=== PATIENT | male | born 1955 | race Caucasian/White ===

== ENCOUNTER 2024-02-07 23:42 | Emergency (ER) | payer MEDICARE, SELFPAY ==
--- NOTE | 2024-02-07 23:43 | ECG_ITS ---
Test Reason : TACHY Blood Pressure : / mmHG Vent. Rate : 105 BPM Atrial Rate : 000 BPM P-R Int : 000 ms QRS Dur : 094 ms QT Int : 338 ms P-R-T Axes : 000 027 009 degrees QTc Int : 446 ms Rhythm shows atrial flutter with variable block with rapid ventricular response Nonspecific ST and T wave abnormality Abnormal ECG No previous ECGs available Referred By: Generic ED Physician Electronically Signed By:TAYA BENAVIDEZ MD
[2024-02-07 23:53] VITALS: BP 141/78; PULSE 113; RESP 18; TEMP 36.6; O2SAT 98; BMI 30.4
--- NOTE | 2024-02-07 23:54 | MHC.EDTECH ---
Patient brought into triage area,EKG taken per order and signed by provider.
--- NOTE | 2024-02-08 | MHC.EDTECH ---
Labs drawn and sent to lab,patient brought to ED bed 17,changed into hospital attire and placed on the cardiac cath technician
[2024-02-08 00:08] LABS: MANUAL DIFF FLAG NO
[2024-02-08 00:12] LABS: Basophils Absolute Auto 0.1 X10*3/uL (0.0-0.2); Basophils Percent Auto 0.9 % (0-2); Eosinophils Absolute Auto 0.4 X10*3/uL (0.0-0.4); Eosinophils Percent Auto 4.9 % (0-4); Hematocrit 46.4 % (42.0-52.0); Imm Gran Abs Auto 0.01 X10*3/uL (0.00-0.03); Imm Gran Pct Auto 0.1 % (0.0-0.4); Lymphocytes Absolute Auto 2.2 X10*3/uL (1.2-4.9); Lymphocytes Percent Auto 27.2 % (20-40); Mean Corpuscular HGB Conc 34.5 g/dl (31.0-36.0); Mean Corpuscular Hemoglobin 30.3 pg (27.0-33.0); Mean Corpuscular Volume 87.9 fL (80.0-98.0); Mean Platelet Volume 9.8 fL (9.4-12.4); Monocytes Percent Auto 11.7 % (2-11); Neutrophils Absolute Auto 4.5 x10*3/uL (2.0-8.3); Neutrophils Percent Auto 55.2 % (45-73); Platelet Count 215 X10*3/uL (160-400); Red Blood Count 5.28 X10*6/uL (4.60-5.80); Red Cell Distribution Width 12.2 % (11.0-16.0); White Blood Count 8.2 X10*3/uL (4.8-10.8)
[2024-02-08 00:19] LABS: Anion Gap 13 (12-20); Blood Urea Nitrogen 15 mg/dL (9-16); Calcium 10.2 mg/dL (8.4-10.2); Carbon Dioxide 26 mmol/L (22-29); Chloride 106 mmol/L (96-108); Creatinine Clr Calc Pharmacy 66.7; Estimated Glomerular Filt Rate > 60; Glucose Random 117 mg/dL (60-115); Potassium 3.4 mmol/L (3.3-5.1); Sodium 142 mmol/L (135-145)
--- NOTE | 2024-02-08 00:24 | ED_ITS ---
HPI - Chest Pain General Chief Complaint: Chest Pain Stated Complaint: heart racing Time Seen by Provider: 02/08/24 00:24 Source: patient Mode of arrival: ambulatory Limitations: no limitations History of Present Illness ED Provider: jossue MARTINO narrative: Patient with history of high cholesterol otherwise healthy comes here for episode of palpitation started an hour ago lasted for an hour within few minutes of arrival palpitation stopped. Patient had dizzy spell 2 months ago was seen by supervisor [facility] [employer] and PCP workup was negative no Holter monitoring was done had echo done few weeks ago which was also normal at the time of evaluation and EKG patient did not have any dizziness when visited supervisor [facility] [employer]. Today patient got up went to bathroom to brush his teeth and noticed heart beating fast which he never felt before with slight lightheadedness heart rate was in 150 range and was irregular no chest pain no shortness a breath no fever no chills patient does drink coffee in a.m. Related Data Previous Rx's ?Medication ?Instructions ?Recorded aspirin 81 mg tablet,delayed 81 mg PO DAILY #30 tabs 02/08/24 release metoprolol tartrate 25 mg tablet 25 mg PO DAILY PRN Palpitation #20 02/08/24 tabs Allergies Allergy/AdvReac Type Severity Reaction Status Date / Time No Known Allergies Allergy Verified 02/07/24 23:54 Review of Systems 2 Review of Systems: Yes all other systems are reviewed and are negative [facility] Social History Social History Alcohol intake: current Alcohol intake frequency: 3 or more drinks per day Alcohol type: beer, wine and hard liquor Smoked in Last 30 Days: No Use of substances other than those prescribed or required for medical reasons: No Advance Directives: No Advance Directives Information Provided: Yes Do you have a plan to hurt others: No Plan Physical Exam 2 Vital Signs: Vital Signs: Last Vital Signs Temp 0 F L 02/08/24 01:31 Pulse 70 02/08/24 01:31 Resp 14 02/08/24 01:31 BP 124/78 02/08/24 01:31 Pulse Ox 94 02/08/24 01:31 O2 Del Method Room Air 02/08/24 01:31 BMI result Body Mass Index 30.4 Appearance: Alert. Oriented X3. No acute distress. Eyes: PERRLA, No Nystagmus ENT: Pharynx normal. Oral Mucosa moist Neck: Normal inspection. Neck supple. CVS: Normal heart rate and rhythm. Pulses normal. No murmur rub or gallop Respiratory: No respiratory distress. Equal air entry bilateral, no wheezing/rales/rhonchi Abdomen: Soft and nontender. Bowel sounds are present, no mass palpable, no CVA tenderness Skin: Skin warm and dry. Normal skin color. Normal skin turgor. Extremities: No lower extremity edema. No calf tenderness Neuro: Oriented X 3. No motor deficit. No sensory deficit.No cerebellar signs , cranial nerves II-XII intact Medications Administered Discontinued Medications Generic Name Dose Route Start Last Admin Trade Name Freq PRN Reason Stop Dose Admin Aspirin 162 mg 02/08/24 00:48 02/08/24 01:05 Aspirin 81 Mg Tab.Chew PO 02/08/24 00:49 162 mg ONCE ONE Administration Metoprolol Tartrate 25 mg 02/08/24 01:02 02/08/24 01:06 Metoprolol Tartrate 25 Mg Tablet PO 02/08/24 01:03 25 mg ONCE ONE Administration Protocol Medical Decision Making Medical Decision Making [facility] Narrative: Patient with paroxysmal AFib converted to normal sinus rhythm, normal echo done few weeks ago will start patient on aspirin chads score of 0 will start patient on 81 mg aspirin also prescribe him Lopressor 25 mg PRN patient is usually heart rate is in 50s to be more cautious and advised to follow up with [facility] [employer] Differential Diagnosis Differential Diagnoses: The differential diagnosis associated with the presentation includes AFib/atrial flutter/SVT Lab Data [facility] Lab Attestation statement: I reviewed the patient's lab results. 02/07/24 23:59 02/07/24 23:59 Labs: Lab Results 02/07/24 Range/Units 23:59 WBC 8.2 (4.8-10.8) X10*3/uL RBC 5.28 (4.60-5.80) X10*6/uL Hgb 16.0 (14.0-18.0) g/dl Hct 46.4 (42.0-52.0) % MCV 87.9 (80.0-98.0) fL MCH 30.3 (27.0-33.0) pg MCHC 34.5 (31.0-36.0) g/dl RDW 12.2 (11.0-16.0) % Plt Count 215 (160-400) X10*3/uL MPV 9.8 (9.4-12.4) fL Immature Gran % (Auto) 0.1 (0.0-0.4) % Neut % (Auto) 55.2 (45-73) % Lymph % (Auto) 27.2 (20-40) % Phillips % (Auto) 11.7 H (2-11) % Eos % (Auto) 4.9 H (0-4) % Baso % (Auto) 0.9 (0-2) % Lymph # (Auto) 2.2 (1.2-4.9) X10*3/uL Phillips # (Auto) 1.0 (0.1-1.2) X10*3/uL Eos # (Auto) 0.4 (0.0-0.4) X10*3/uL Baso # (Auto) 0.1 (0.0-0.2) X10*3/uL Abs Immat Gran (auto) 0.01 (0.00-0.03) X10*3/uL Absolute Neuts (auto) 4.5 (2.0-8.3) x10*3/uL Absolute Nucleated RBC 0.000 (0.0-0.012) X10*3/uL Nucleated RBC % (auto) 0.0 (0.0-0.2) /100WBC Hold Blue Top SEE NOTE Sodium 142 (135-145) mmol/L Potassium 3.4 (3.3-5.1) mmol/L Chloride 106 (96-108) mmol/L Carbon Dioxide 26 (22-29) mmol/L Anion Gap 13 (12-20) BUN 15 (9-16) mg/dL Creatinine 1.19 (0.5-1.4) mg/dL Estim Creat Clear Calc 66.7 Estimated GFR > 60 Random Glucose 117 H (60-115) mg/dL Calcium 10.2 (8.4-10.2) mg/dL Troponin I High Sens 12.4 (<3.5-35.0) ng/L Independent Interpretation I performed an independent interpretation of an: EKG Interpretation: [id number] Atrial fibrillation with ventricular rate of 105 normal axis no acute ST T wave changes no acute ischemia 00:25 normal sinus rhythm heart rate 81 beats per minute normal interval normal axis no acute ST T wave changes Discharge Plan Discharge Clinical Impression: Paroxysmal A-fib Patient Disposition: Home, Self-Care Instructions: A-fib (Atrial Fibrillation) (ED) Additional Instructions: Take baby aspirin daily Lopressor 25 mg p.o. at the time of onset of palpitation if any and report to the ER Follow with your supervisor [facility] [employer] Prescriptions: New metoprolol tartrate 25 mg tablet 25 mg PO DAILY PRN (Reason: Palpitation) Qty: 20 0RF aspirin 81 mg tablet,delayed release (DR/EC) 81 mg PO DAILY Qty: 30 0RF Interventions: ED Discharge Assessment Last Done: 02/08/24 01:31 Discharge Date/Time: 02/08/24 01:33 Print Language: Occitan
[2024-02-08 00:27] LABS: Troponin-I High Sensitivity 12.4 ng/L (<3.5-35.0)
--- NOTE | 2024-02-08 00:36 | ECG_ITS ---
Test Reason : CHEST PAIN Blood Pressure : / mmHG Vent. Rate : 081 BPM Atrial Rate : 081 BPM P-R Int : 196 ms QRS Dur : 086 ms QT Int : 380 ms P-R-T Axes : 027 -10 041 degrees QTc Int : 441 ms Normal sinus rhythm Normal ECG When compared with ECG of 07-FEB-2024 23:46, Sinus rhythm has replaced Rhythm shows atrial flutter with variable block ST no longer depressed in Lateral leads Nonspecific T wave abnormality no longer evident in Inferior leads Referred By: Carlos Aquino Electronically Signed By:TAYA BENAVIDEZ MD
[2024-02-08] MEDS: Aspirin 81 MG TAB.CHEW 162 MG PO (01:05)
[2024-02-08 01:06] VITALS: BP 134/78; PULSE 75
[2024-02-08] MEDS: Metoprolol Tartrate 25 MG TABLET PO (01:06)
[2024-02-08 01:24] VITALS: BP 124/78; PULSE 70; RESP 14; O2SAT 94
[2024-02-08 01:31] VITALS: BP 124/78; PULSE 70; RESP 14; TEMP -17.7; TEMP 0; O2SAT 94
== END 2024-02-08 01:33 | disposition home or self-care (01) ==
PROVIDERS: Emergency Provider Internal Medicine
DX: I48.0 Paroxysmal atrial fibrillation (principal); R00.2 Palpitations
CPT/HCPCS: 36415; 80048; 84484; 85025; 93005; 99284; 99285

== ENCOUNTER → 2024-02-07 23:43 | Outpatient (BNV) | payer MEDICARE, SELFPAY | PROVIDERS: Emergency Provider Internal Medicine; Visit Provider Internal Medicine Cardiovascular Disease | DX: R00.0 Tachycardia, unspecified (principal); R94.31 Abnormal electrocardiogram [ECG] [EKG] | CPT/HCPCS: 93010 ==

== ENCOUNTER → 2024-02-08 00:36 | Outpatient (BNV) | payer MEDICARE, SELFPAY | PROVIDERS: Emergency Provider Internal Medicine; Visit Provider Internal Medicine Cardiovascular Disease | DX: R07.9 Chest pain, unspecified (principal); I48.92 Unspecified atrial flutter | CPT/HCPCS: 93010 ==

== ENCOUNTER 2024-02-14 14:56 | Outpatient (AMB) | payer MEDICARE, SELFPAY ==
--- NOTE | 2024-02-14 15:12 | AM.OFFWIN_ITS ---
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 Cut yesterday with kitchen knife. Thinks up to date on TDAP Patient Tobacco Use Status: Never used Tobacco Allergies Penicillins Allergy (Intermediate, Verified 02/14/24 15:19) Rash Do you need a note to return to daycare/school/sports/work: No HPI HPI Comments 2 History of Present Illness0 Details 68 y/o male patient who presents to walk in clinic with c/o cut on left index finger. Patient was cutting onions yesterday afternoon when he cut the tip of his index finger left hand. Tip of the finger missing, superficially, bleeding and tenderness. [facility] Social History Alcohol intake: current Alcohol intake frequency: 3 or more drinks per day Alcohol type: beer, wine and hard liquor Patient Tobacco Use Status: Never used Tobacco Review of Systems Const All systems reviewed & are unremarkable except as noted in HPI and below Physical Exam Vital Signs: Last Vital Signs Temp 98.7 F 02/14/24 15:13 Pulse 57 02/14/24 15:13 BP 138/84 02/14/24 15:13 Pulse Ox 94 02/14/24 15:13 Oxygen Delivery Method Room Air 02/14/24 15:13 BMI result Body Mass Index 31.5 Const General: comfortable and no acute distress Orientation/consciousness: patient oriented x3 Neuro General: patient oriented x3, gait normal and moves all extremities Extrem Left upper extremity: hand Details: tenderness Location: of the 2nd digit Location: involving the fingernail Hand/finger images: 2 1. Small chunk of tip of index finger missing, active bleeding and tenderness to touch. Psych Speech and movement: Normal speech and movement present Assessment & Plan Assessment & Plan (1) Cut of skin of index finger: Code(s): S61.218A - Laceration without foreign body of other finger without damage to nail, initial encounter Plan: clean the wound well Applied a pressure dressing to stop bleeding. Acetaminophen for pain relief. Last Tetanus shot unknown. Will have Pt come back for Tdap shot. Coding Level of Care Code Est Pt Level 3 (68619) Diagnoses Cut of skin of index finger S61.218A Time Spent (min) 15
[2024-02-14 15:13] VITALS: BP 138/84; PULSE 57; TEMP 37.1; O2SAT 94; BMI 31.5
== END 2024-02-14 16:02 | disposition home or self-care (01) ==
PROVIDERS: PCP Internal Medicine; Visit Provider Nurse Practitioner Family
DX: S61.218A Laceration without foreign body of other finger without damage to nail, initial encounter (principal)
CPT/HCPCS: 99213

== ENCOUNTER 2025-07-29 00:44 | Emergency (ER) | payer MEDICARE, SELFPAY ==
--- NOTE | 2025-07-29 | ECG_ITS ---
Test Reason : AFIB Blood Pressure : */* mmHG Vent. Rate : 95 BPM Atrial Rate : * BPM P-R Int : * ms QRS Dur : 92 ms QT Int : 358 ms P-R-T Axes : * 28 41 degrees QTcB Int : 449 ms Atrial fibrillation Abnormal ECG When compared with ECG of 08-Feb-2024 00:25, Atrial fibrillation has replaced Sinus rhythm Referred By: Generic ED Physician Electronically Signed By: Cash Marx
--- NOTE | ~2025-07-29 | XR_ITS ---
CLINICAL HISTORY: afib 2 view chest x-ray Comparison: None provided Findings: Mild bibasilar atelectasis/pneumonitis, right worse than left. Mild emphysematous changes by radiographs. Cardiac silhouette within upper limits of normal with cardiac cath rn opacity present. No pneumothorax or pleural effusion. Mild vertebral height losses are age indeterminate likely old/chronic. Degenerative changes include imaged shoulders and imaged spine. IMPRESSION: Mild bibasilar atelectasis/pneumonitis This document has been electronically signed by: Juancarlos Jo MD on 07/29/2025 01:45:42
[2025-07-29 00:52] VITALS: BP 140/90; PULSE 101; RESP 18; TEMP 36.5; O2SAT 96; BMI 29.6
--- NOTE | 2025-07-29 01:50 | ECG_ITS ---
Test Reason : ARRYTHMIA Blood Pressure : */* mmHG Vent. Rate : 64 BPM Atrial Rate : 64 BPM P-R Int : 200 ms QRS Dur : 92 ms QT Int : 406 ms P-R-T Axes : 30 -6 32 degrees QTcB Int : 418 ms Normal sinus rhythm Normal ECG When compared with ECG of 29-Jul-2025 00:47, Sinus rhythm has replaced Atrial fibrillation Vent. rate has decreased by 31 bpm Referred By: Korey Echavarria Electronically Signed By: Cash Marx
--- NOTE | 2025-07-29 01:51 | ED_ITS ---
HPI - General Adult General Chief complaint: Arrhythmia/Palpitations Stated complaint: Afib? Time Seen by Provider: 07/29/25 01:16 Source: patient, RN notes reviewed and old records reviewed Mode of arrival: ambulatory Limitations: no limitations History of Present Illness ED Provider: Jericho MARTINO narrative: 69-year-old male with a past medical history significant for paroxysmal atrial fibrillation not anticoagulated presents for evaluation of palpitations. Patient follows with [facility]. He reports around 11:15 p.m. tonight while he was brushing his teeth he felt palpitations He has had AFib in the past that he has been seen in the ER for. He reports getting palpitations that often last a few minutes at a time before resolving. On this occasion his symptoms lasted for over an hour. He checked his blood pressure monitor that told him he was in AFib prompting him to come to the hospital. He took metoprolol 25 mg around midnight that was prescribed to him for episodes of palpitations He has no chest pain, no shortness of breath. Denies any fevers, chills pain Denies any leg swelling or history of heart failure The patient denies any significant stress today. He reports he was born travel hours prior to the onset of palpitations Related Data Home Medications ?Medication ?Instructions ?Recorded ?Confirmed atorvastatin 40 mg tablet 40 mg PO BEDTIME 02/14/24 Previous Rx's ?Medication ?Instructions ?Recorded aspirin 81 mg tablet,delayed 81 mg PO DAILY #30 tabs 0 02/08/24 release Allergies Allergy/AdvReac Type Severity Reaction Status Date / Time Penicillins Allergy Intermediate Rash Verified 07/29/25 00:55 Review of Systems 2 Constitutional: Constitutional: Denies body ache(s), Denies chills, Denies fever(s) and Denies headache(s) Eyes: Eyes: Denies blurry vision ENT: Denies vertigo, Denies dizziness and Denies headache(s) Cardiovascular: Cardiovascular: Denies chest pain, Reports rapid heart rate, Reports palpitations, Denies dyspnea and Denies dyspnea on exertion Respiratory: Respiratory: Denies cough, Denies dyspnea and Denies dyspnea on exertion Gastrointestinal: Gastrointestinal: Denies abdominal pain, Denies nausea and Denies vomiting Musculoskeletal: Musculoskeletal: Denies back pain Integumentary/Breasts: Skin/Breast: Denies rash Neurologic: Denies vertigo, Denies dizziness and Denies headache(s) Endocrine: Endocrine: Reports palpitations PMFSH Social History Social History Alcohol intake: current Alcohol intake frequency: 3 or more drinks per day Alcohol type: beer, wine and hard liquor Patient Tobacco Use Status: Never used Tobacco Advance Directives: No Advance Directives Information Provided: Yes Do you have a plan to hurt others: No Plan Physical Exam ED Vital Signs: Vital Signs - 24 hr 07/29/25 00:52 Temperature 97.7 F Pulse Rate 101 H Respiratory Rate 18 Blood Pressure 140/90 H Pulse Oximetry 96 Oxygen Delivery Method Room Air BMI result Body Mass Index 29.6 Const General: healthy appearing, comfortable, no acute distress, alert and awake Nutritional Appearance: well nourished Orientation/consciousness: patient oriented x3 HENMT Head: Yes normocephalic and Yes atraumatic Eyes Eyelids: Yes eyelids normal Conjunctivae: conjunctivae normal Sclerae: sclerae normal Corneas: corneas normal Pupils: Equal, round and reactive pupils present EOM: EOMs intact bilaterally Neck Neck: Yes full ROM Resp Effort & Inspection: normal respiratory effort, able to speak in complete sentences, no audible wheezes and not labored Auscultation: clear to auscultation bilaterally Cardio Other: No lower extremity edema Rhythm: abnormal rhythm irregularly irregular GI Inspection: No distended Palpation (GI): Soft to palpation, not firm, nontender, no guarding and not rigid Skin General skin exam: elasticity normal Neuro General: patient oriented x3 Cranial nerves: Yes Equal, round and reactive pupils present and Yes Bilaterally intact EOM present Cognition (Neuro): normal cognition Extrem Other: Moving all extremities well without any obvious deformities Course Reevaluation(s) Reevaluation #1: Patient has seemed to spontaneously convert back to a normal sinus rhythm. EKG confirms normal sinus rhythm with a rate in the 60s Time: 02:03 Reevaluation #2: 2:32 AM 07/29/2025 (Aubrey RODRIGUEZ): Patient is signed out to this provider at shift change, in summary the patient is a 69-year-old male who suffers from paroxysmal atrial fibrillation, presenting to the ED after he developed racing heart palpitation sensation while brushing his teeth. Patient took his prn metoprolol at home with no significant improvement after 1 hour, and presents to the ED for evaluation. Patient was in a rate controlled atrial fibrillation when he arrived in the ED, however during ED course patient did spontaneously revert to a sinus rhythm. Patient was signed out to this provider pending laboratory evaluation. At this time the patient's laboratory evaluation has begun resulting in shows no leukocytosis, anemia, electrolyte abnormality, or KELSIE. The patient's LFTs are unremarkable. Patient's TSH is pending. The patient's troponin is 25, within normal range. Patient was re-evaluated in his still in a sinus rhythm, denying any chest pain. Pending unremarkable TSH the patient will be discharged with outpatient PCP and cardiology follow up. Medical Decision Making Medical Decision Making MDM Narrative: 69-year-old male with a history of atrial fibrillation, CHADS2 Vasc score of 1 presents for evaluation of palpitations. His symptoms started around 11:15 p.m., about an hour and a half prior to arrival. EKG in triage shows atrial fibrillation with a rate of 95 beats minute. The patient has no chest pain. No shortness of breath. Chest x-ray does not show any pleural effusions. It does show questionable pneumonitis versus atelectasis, the patient has no signs or symptoms of pneumonitis or pneumonia. No fevers, coughing no shortness of breath. Plan for labs. Plan for observation. Given that he is rate controlled and blood pressure is stable we will hold antiarrhythmics at the site. Differential Diagnosis Differential Diagnoses: The differential diagnosis associated with the presentation includes Atrial fibrillation Palpitations Cardiac arrhythmia A flutter Admission/Observation Consideration of admission/observation: Escalation of care including admission/observation considered Lab Data MDM Lab Attestation statement: I reviewed the patient's lab results. No leukocytosis or anemia. Normal platelet count 07/29/25 01:50 07/29/25 01:50 Labs: Lab Results 07/29/25 Range/Units 01:50 WBC 6.5 (4.8-10.8) X10*3/uL RBC 5.16 (4.60-5.80) X10*6/uL Hgb 15.2 (14.0-18.0) g/dl Hct 44.7 (42.0-52.0) % MCV 86.6 (80.0-98.0) fL MCH 29.5 (27.0-33.0) pg MCHC 34.0 (31.0-36.0) g/dl RDW 12.1 (11.0-16.0) % Plt Count 214 (160-400) X10*3/uL MPV 9.6 (9.4-12.4) fL Immature Gran % (Auto) 0.3 (0.0-0.4) % Neut % (Auto) 58.7 (45-73) % Lymph % (Auto) 24.2 (20-40) % Lincoln % (Auto) 12.1 H (2-11) % Eos % (Auto) 4.1 H (0-4) % Baso % (Auto) 0.6 (0-2) % Lymph # (Auto) 1.6 (1.2-4.9) X10*3/uL Lincoln # (Auto) 0.8 (0.1-1.2) X10*3/uL Eos # (Auto) 0.3 (0.0-0.4) X10*3/uL Baso # (Auto) 0.0 (0.0-0.2) X10*3/uL Abs Immat Gran (auto) 0.02 (0.00-0.03) X10*3/uL Absolute Neuts (auto) 3.8 (2.0-8.3) x10*3/uL Absolute Nucleated RBC 0.000 (0.0-0.012) X10*3/uL Nucleated RBC % (auto) 0.0 (0.0-0.2) /100WBC Sodium 144 (135-145) mmol/L Potassium 3.7 (3.3-5.1) mmol/L Chloride 109 H (96-108) mmol/L Carbon Dioxide 25 (22-29) mmol/L Anion Gap 14 (12-20) BUN 12 (9-16) mg/dL Creatinine 1.03 (0.5-1.4) mg/dL Estim Creat Clear Calc 75.1 Estimated GFR > 60 Random Glucose 106 (60-115) mg/dL Calcium 9.3 D (8.4-10.2) mg/dL Total Bilirubin 0.5 (0.0-1.0) mg/dL AST 38 H (5-37) U/L ALT 38 (0-40) U/L Alkaline Phosphatase 61 (39-117) U/L Troponin I High Sens 25.2 D (<3.5-35.0) ng/L Total Protein 7.0 (6.5-8.0) g/dL Albumin 4.6 (3.5-5.0) g/dL TSH 2.31 (0.32-4.0) uIU/mL Independent Interpretation I performed an independent interpretation of an: EKG (AFib with a rate of 95 beats minute.) Interpretation: Repeat EKG shows normal sinus rhythm with a rate of 64 beats minute. Radiology Impression Discussion of test interpretation with radiology: I have reviewed the radiologist's reading. Radiologist Impression: Findings: Mild bibasilar atelectasis/pneumonitis, right worse than left. Mild emphysematous changes by radiographs. Cardiac silhouette within upper limits of normal with hall monitor opacity present. No pneumothorax or pleural effusion. Mild vertebral height losses are age indeterminate likely old/chronic. Degenerative changes include imaged shoulders and imaged spine. IMPRESSION: Mild bibasilar atelectasis/pneumonitis This document has been electronically signed by: Juancarlos Jo MD on 07/29/2025 01:45:42 Discharge Plan Discharge Clinical Impression: AF (paroxysmal atrial fibrillation) Patient Disposition: Home, Self-Care Instructions: A-fib (Atrial Fibrillation) (ED) Additional Instructions: Your workup in the ER did confirm that you were in atrial fibrillation. You appeared to spontaneously convert. Your labs were reassuring. 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
[2025-07-29 01:54] LABS: Hematocrit 44.7 % (42.0-52.0); Hemoglobin 15.2 g/dl (14.0-18.0); Imm Gran Abs Auto 0.02 X10*3/uL (0.00-0.03); Imm Gran Pct Auto 0.3 % (0.0-0.4); Lymphocytes Absolute Auto 1.6 X10*3/uL (1.2-4.9); MANUAL DIFF FLAG NO; Mean Corpuscular HGB Conc 34.0 g/dl (31.0-36.0); Mean Corpuscular Hemoglobin 29.5 pg (27.0-33.0); Mean Corpuscular Volume 86.6 fL (80.0-98.0); NRBC Abs Auto 0.000 X10*3/uL (0.0-0.012); NRBC Pct Auto 0.0 /100WBC (0.0-0.2); Platelet Count 214 X10*3/uL (160-400); Red Blood Count 5.16 X10*6/uL (4.60-5.80); White Blood Count 6.5 X10*3/uL (4.8-10.8)
--- NOTE | 2025-07-29 01:54 | PC.NURSE ---
rhythm appears to be in normal sinus on monitor at 67bpm. repeat ekg ordered.
--- OUTSIDE RECORDS SUMMARY | 2025-07-29 02:24 | XMS_ITS | Clinical Summary ---
Author Organization [address] Address [address] [place] [address] Phone Care Team Providers Care Perinatal Educator Name Role Phone Unavailable Primary Care Provider Unavailabl e Social History Tobacco Use Types Packs/Day Years Used Date Smoking Tobacco: Never Assessed Sex and Gender Information Value Date Recorded Sex Assigned at Not on file Legal Sex Male 2:07 PM EST Gender Identity Not on file Sexual Orientation Not on file Plan of Treatment Health Maintenance Due Date Last Done Comments Colorectal Cancer Screening: Colonoscopy 1955 DTaP,Tdap,and Td Vaccines (1 - Tdap) 1976 Pneumococcal Vaccine: 50+ Ye ars (1 of 1 - PCV) 11/27/2007 Zoster Vaccines (1 of 2) 11/27/2007 Depression Screening 08/12/2024 Abdominal Aortic Aneurysm (A AA) Screen 08/27/2024 Cholesterol Screening (Lipid Panel) 08/27/2024 Falls Risk Assessment 08/27/2024 Hepatitis C Screening 08/27/2024 Medicare Annual Wellness Visit 08/27/2024 Social Influencers of Health Screening 08/27/2024 COVID-19 Vaccine (1 - 2024-2 6 season) 2025 Influenza Vaccine (#1) 2025 RSV Immunization Adult Patie nts (1 - 1-dose 75+ series) 2032 HIB Vaccines Aged Out No longer eligi ble based on patient's age to complete this topic HPV Vaccines Aged Out No longer eligi ble based on patient's age to complete this topic Hepatitis A Vaccines Aged Out No long er eligible based on patient's age to complete this topic Hepatitis B Vaccines Aged Out No long er eligible based on patient's age to complete this topic IPV Vaccines Aged Out No longer eligi ble based on patient's age to complete this topic MMR Vaccines Aged Out No longer eligi ble based on patient's age to complete this topic Meningococcal ACWY Vaccine Aged Out N o longer eligible based on patient's age to complete this topic Meningococcal B Vaccine Aged Out No l onger eligible based on patient's age to complete this topic RSV Immunization Patients Un mikael 20 months Aged Out No longer eligible b ased on patient's age to complete this topic Varicella Vaccines Aged Out No longer eligible based on patient's age to complete this topic Insurance [employer] [place] [id number]
--- OUTSIDE RECORDS SUMMARY | 2025-07-29 02:24 | XMS_ITS | Encounter Summary ---
Author Organization [facility] Address [address] [place] [address] Care Team Providers Care Loans Officer Name Role Phone Unavailable Primary Care Provider Unavailabl e Encounter Details Date Type Department Care Team (Late st Contact Info) Description 08/27/2024 Lab Requisition [facility] - Main Lab [address] [facility] [place] [address] Elba Castillo PA [address] [facility] [address] [place] [address] Benign prostatic hyperplasia without lower urinary tract symptoms Social History Tobacco Use Types Packs/Day Years Used Date Smoking Tobacco: Never Assessed Sex and Gender Information Value Date Recorded Sex Assigned at Not on file Legal Sex Male 2:07 PM EST Gender Identity Not on file Sexual Orientation Not on file documented as of this encounter Plan of Treatment Not on file documented as of this encounter Procedures Procedure Name Priority Date/Time Associated Diagnosis Comments PROSTATE SPECIFIC ANTIGEN DIAGNOSTIC Routine 08/27/2024 10:33 AM EST Benign prostatic hyperplasia without lower urinary tract symptoms documented in this encounter Results * Prostate specific antigen diagnostic (08/27/2024 10:33 AM EST) PSA 0.35 0.00 - 4.00 ng/mL LAB CHEMISTRY METHOD 08/27/2024 2:15 PM EST [facility] Blood Venous blood specimen / Unknown 08/27/2024 10:33 AM EST 08/27/2024 1:11 PM EST Narrative [facility] - 08/27/2024 2:15 PM EST The Siemens Adv[email or web address] Chemiluminescent Immunoassay is used. Results obtained with different assay methods or kits cannot be used interchangeably. Results cannot be interpreted as absolute evidence of the presence or absence of malignant disease. [place] [facility]RIG[facility] BLOOD ORDERABLES Final Res ult [facility] ([facility] [address] [place] [address], [place] [phone] documented in this encounter Visit Diagnoses Diagnosis Benign prostatic hyperplasia without lower urinary tract symptoms documented in this encounter
--- OUTSIDE RECORDS SUMMARY | 2025-07-29 02:24 | XMS_ITS | Data Portability ---
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 Plan of Treatment Reminders Order Date Submit Date Provider Last Modified By Organization Details Last Modified Time Details Appointments None record ed. Lab PSA, serum or plasma 2024 GILBERT [facility] (Centralized Electronic Ordering - All Locations), Patient Can Go To The Location Of Their Choice, 08:09:32 lipid panel, serum 2024 GILBERT [facility] (Centralized Electronic Ordering - All Locations), Patient Can Go To The Location Of Their Choice, 08:09:32 CBC w/ auto diff 2024 GILBERT [facility] (Centralized Electronic Ordering - All Locations), Patient Can Go To The Location Of Their Choice, 08:09:31 CMP, serum or plasma 2024 GILBERT [facility] (Centralized Electronic Ordering - All Locations), Patient Can Go To The Location Of Their Choice, 08:09:30 magnes ium, serum or plasma 2024 025 GIL[facility]ERT [facility] (Centralized Electronic Ordering - All Locations), Patient Can Go To The Location Of Their Choice, 5 08:09:33 lipid panel, serum 2023 024 GIL[facility]ERT [facility] (Centralized Electronic Ordering - All Locations), Patient Can Go To The Location Of Their Choice, 4 06:09:17 CMP, serum or plasma 2023 024 GIL[facility]ERT [facility] (Centralized Electronic Ordering - All Locations), Patient Can Go To The Location Of Their Choice, 4 06:09:16 CBC w/ auto diff 2023 024 GIL[facility]ERT [facility] (Centralized Electronic Ordering - All Locations), Patient Can Go To The Location Of Their Choice, 4 06:09:16 CBC w/ auto diff 2023 024 [facility], [address], [place], [address], 4 06:08:02 BMP, serum or plasma 2023 024 [facility], [address], [place], [address], 4 06:08:03 magnes ium, serum or plasma 2023 024 GILBERT [facility], [address], [address], [place], [address], 4 06:08:04 TSH, ultra- sensit sameer, serum 2023 024 G[facility], [address], [place], [address], 4 06:08:04 lipid panel, serum 2022 023 GILBERT [facility], [address], [address], [place], [address], 3 18:57:15 ALT (fermin ne aminot ransfe rase), serum or plasma 2022 023 GILBERT [facility], [address] [facility], [address], [place], [address], 3 18:57:12 AST/SG OT (aspar alvarez aminot ransfe rase), serum or plasma 2022 023 GIL[facility]ERT [facility], [address], [address], [place], [address], 3 18:57:13 Referral hand surgeo n referr al - Dupytr ens at right hand 2023 024 sarai Bowers MD, [address] [facility], [facility] [address], [place], [address], 4 08:11:52 cardio logist referr al 2023 024 [facility], [address] [place], [address], 4 10:48:44 Procedures None record ed. Surgeries None record ed. Imaging CT, brooks ry calciu m score - Self Pay On [email or web address] meds. 2024 025 [facility], [address] [place], [address], 5 14:32:26 electr ocardi ogram 2023 024 [email or web address] In-Office Order, Internal Use Only DO Not Attach Compendium DO Not Attach Compendium, Do Not Delete/merge, [id number] 4 14:29:31 Medication Orders triamc inolon e aceton vasu 0.1 % topica l cream 2022 023 [id number], [address], [place], [id number], 18:01:53 Patient TargetsNo targets recorded. Patient Instructions Encounter Date Encounter Id Patient Instructions Last Modified By Organization Details Last Modified Time 05/14/2023 [id number] psoriasis: care instructions [email or web address] Not available 05/14/2023 18:01:46 high cholesterol: care instructions [email or web address] Not available 05/14/2023 14:27:29 10/21/2023 [id number] Follow up if no improvement or if symptoms worsen. pmadden Not available 10/21/2023 16:42:49 11/11/2023 [id number] Follow up if no improvement or if symptoms worsen. 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 Referring Physician: Luis Manuel Piper, Internal Medicine, Encounter Date: 11/11/2023 Hand Surgeon Referral for Du puytren's disease of palm Dupytrens at right hand Referring Physician: Carlo Aleman, Family Medicine, Encounter Date: 06/09/2024 Results Created Date Observation Date Name Description Value Unit Range Abnormal Flag Note LastModifiedBy Organization Detail LastModifiedTime 06/04/2006/04/2023 ALT ALT 30 U/L (0-41) Not Available [facility] (Centralized Electronic Ordering - All Locations) Patient Can Go To The Location Of Their Choice, [id number] 06/04/2023 18:57:12 06/04/2006/04/2023 AST AST 27 U/L (0-40) Not Available [facility] (Centralized Electronic Ordering - All Locations) Patient Can Go To The Location Of Their Choice, [id number] 06/04/2023 18:57:13 06/04/2006/04/2023 LIPID PANEL cholesterol, total 167 mg/dL (<200) Not Available [facility] ([facility] Order[facility] - All Locations) Patient Can Go To The Location Of Their Choice, [address] 06/04/2023 18:57:14 06/04/2006/04/2023 LIPID PANEL triglyceride 89 mg/dL (<150) Fasti ng Not Available [facility] (Centralized Electronic Ordering - All Locations) Patient Can Go To The Location Of Their Choice, [address] 06/04/2023 18:57:14 06/04/2006/04/2023 LIPID PANEL HDL chol 55 mg/dL (>39) Not Available [facility] ([facility]ized Electronic Ordering - All Locations) Patient Can Go To The Location Of Their Choice, [address] 06/04/2023 18:57:14 06/04/2006/04/2023 LIPID PANEL LDL cholesterol, calculated 94 mg/dL (0-130 ) Not Available [facility] ([facility] Ordering - All Locations) Patient Can Go To The Location Of Their Choice, [address] 06/04/2023 18:57:14 06/04/2006/04/2023 LIPID PANEL non HDL cholesterol (calc) 112 mg/dL (<160) Not Available [facility] ([facility] Order[facility] - All Locations) Patient Can Go To The Location Of Their Choice, [id number] 06/04/2023 18:57:14 10/21/1910/22/2023 CBC WITH DIFFE RENTI AL/PL ATELE T WBC 5.8 x10e3 /uL 3.4-10 .8 Not Available [facility] ([facility]) [address] [facility], [place], [address], 10/23/2023 06:08:02 10/21/1910/22/2023 CBC WITH DIFFE RENTI AL/PL ATELE T RBC 5.19 x10e6 /uL 4.14-5 .80 Not Available [facility] ([facility]) [address] [facility], [place], [address], 10/23/2023 06:08:02 10/21/19 24 10/22/2023 CBC WITH DIFFE RENTI AL/PL ATELE T hemoglobin 16.0 g/dL 13.0-1 7.7 Not Available [facility] ([facility]) [address] [place], [address], 10/23/2023 06:08:02 10/21/19 24 10/22/2023 CBC WITH DIFFE RENTI AL/PL ATELE T hematocrit 46.7 % 37.5-5 1.0 Not Available [facility] ([facility]) [address] [place], [address], 10/23/2023 06:08:02 10/21/19 24 10/22/2023 CBC WITH DIFFE RENTI AL/PL ATELE T MCV 90 fL 79-97 Not Available [facility] ([facility]) [address] [place], [address], 10/23/2023 06:08:02 10/21/19 24 10/22/2023 CBC WITH DIFFE RENTI AL/PL ATELE T MCH 30.8 pg 26.6-3 3.0 Not Available [facility] ([facility]) [address] [place], [address], 10/23/2023 06:08:02 10/21/19 24 10/22/2023 CBC WITH DIFFE RENTI AL/PL ATELE T MCHC 34.3 g/dL 31.5-3 5.7 Not Available [facility] ([facility]) [address] [place], [address], 10/23/2023 06:08:02 10/21/19 24 10/22/2023 CBC WITH DIFFE RENTI AL/PL ATELE T RDW 12.6 % 11.6-1 5.4 Not Available [facility] ([facility]) [address] [place], [address], 10/23/2023 06:08:02 10/21/19 24 10/22/2023 CBC WITH DIFFE RENTI AL/PL ATELE T platelets 244 x10e3 /uL 150-45 0 Not Available [facility] ([facility]) [address] [facility], [place], [address], 10/23/2023 06:08:02 10/21/19 24 10/22/2023 CBC WITH DIFFE RENTI AL/PL ATELE T neutrophils 61 % not estab. Not Available [facility] ([facility]) [address] [facility], [place], [address], 10/23/2023 06:08:02 10/21/19 24 10/22/2023 CBC WITH DIFFE RENTI AL/PL ATELE T lymphs 24 % not estab. Not Available [facility] ([facility]) [address] [facility], [place], [address], 10/23/2023 06:08:02 10/21/19 24 10/22/2023 CBC WITH DIFFE RENTI AL/PL ATELE T monocytes 10 % not estab. Not Available [facility] ([facility]) [address] [facility], [place], [address], 10/23/2023 06:08:02 10/21/19 24 10/22/2023 CBC WITH DIFFE RENTI AL/PL ATELE T eos 4 % not estab. Not Available [facility] ([facility]) [address] [facility], [place], [address], 10/23/2023 06:08:02 10/21/19 24 10/22/2023 CBC WITH DIFFE RENTI AL/PL ATELE T basos 1 % not estab. Not Available [facility] ([facility]) [address] [facility], [place], [address], 10/23/2023 06:08:02 10/21/19 24 10/22/2023 CBC WITH DIFFE RENTI AL/PL ATELE T immature cells JERSEY KNITTER Not Available [facility] ([facility]) [address] [place], [address], 10/23/2023 06:08:02 10/21/19 24 10/22/2023 CBC WITH DIFFE RENTI AL/PL ATELE T neutrophils (absolute) 3.5 x10e3 /uL 1.4-7. 0 Not Available [facility] ([facility]) [address] [place], [address], 10/23/2023 06:08:02 10/21/19 24 10/22/2023 CBC WITH DIFFE RENTI AL/PL ATELE T lymphs (absolute) 1.4 x10e3 /uL 0.7-3. 1 Not Available [facility] ([facility]) [address] [place], [address], 10/23/2023 06:08:02 10/21/19 24 10/22/2023 CBC WITH DIFFE RENTI AL/PL ATELE T monocytes(ab solute) 0.6 x10e3 /uL 0.1-0. 9 Not Available [facility] ([facility]) [address] [place], [address], 10/23/2023 06:08:02 10/21/19 24 10/22/2023 CBC WITH DIFFE RENTI AL/PL ATELE T eos (absolute) 0.2 x10e3 /uL 0.0-0. 4 Not Available [facility] ([facility]) [address] [place], [address], 10/23/2023 06:08:02 10/21/19 24 10/22/2023 CBC WITH DIFFE RENTI AL/PL ATELE T baso (absolute) 0.1 x10e3 /uL 0.0-0. 2 Not Available [facility] ([facility]) [address] [place], [address], 10/23/2023 06:08:02 10/21/19 24 10/22/2023 CBC WITH DIFFE RENTI AL/PL ATELE T immature granulocytes 0 % not estab. Not Available [facility] ([facility]) [address] [facility], [place], [address], 10/23/2023 06:08:02 10/21/19 24 10/22/2023 CBC WITH DIFFE RENTI AL/PL ATELE T immature grans (abs) 0.0 x10e3 /uL 0.0-0. 1 Not Available [facility] ([facility]) [address] [facility], [place], [address], 10/23/2023 06:08:02 10/21/19 24 10/22/2023 CBC WITH DIFFE RENTI AL/PL ATELE T NRBC JERSEY KNITTER Not Available [facility] ([facility]) [address] [facility], [place], [address], 10/23/2023 06:08:02 10/21/19 24 10/22/2023 CBC WITH DIFFE RENTI AL/PL ATELE T hematology comments: JERSEY KNITTER Not Available [facility] ([facility]) [address] [facility], [place], [address], 10/23/2023 06:08:02 10/21/19 24 10/22/2023 BASIC METAB OLIC PANEL (8) glucose 98 mg/dL 70-99 Not Available [facility] ([facility]) [address] [facility], [place], [address], 10/23/2023 06:08:03 10/21/19 24 10/22/2023 BASIC METAB OLIC PANEL (8) BUN 11 mg/dL 8-27 Not Available [facility] ([facility]) [address] [facility], [place], [address], 10/23/2023 06:08:03 10/21/19 24 10/22/2023 BASIC METAB OLIC PANEL (8) creatinine 1.10 mg/dL 0.76-1 .27 Not Available [facility] ([facility]) [address], [place], [address], 10/23/2023 06:08:03 10/21/19 24 10/22/2023 BASIC METAB OLIC PANEL (8) eGFR 74 mL/mi n/1.7 3 >59 Not Available [facility] ([facility]) [address], [place], [address], 10/23/2023 06:08:03 10/21/19 24 10/22/2023 BASIC METAB OLIC PANEL (8) BUN/creatini ne ratio 10 10-24 Not Available [facility] ([facility]) [address] [facility], [place], [address], 10/23/2023 06:08:03 10/21/19 24 10/22/2023 BASIC METAB OLIC PANEL (8) sodium 142 mmol/ L 134-14 4 Not Available [facility] ([facility]) [address] [facility], [place], [address], 10/23/2023 06:08:03 10/21/19 24 10/22/2023 BASIC METAB OLIC PANEL (8) potassium 4.6 mmol/ L 3.5-5. 2 Not Available [facility] ([facility]) [address] [facility], [place], [address], 10/23/2023 06:08:03 10/21/1910/22/2023 BASIC METAB OLIC PANEL (8) chloride 103 mmol/ L 96-106 Not Available [facility] ([facility]) [address] [facility], [place], [address], 10/23/2023 06:08:03 10/21/19 24 10/22/2023 BASIC METAB OLIC PANEL (8) carbon dioxide, total 23 mmol/ L 20-29 Not Available [facility] ([facility]) [address] [facility], [place], [address], 10/23/2023 06:08:03 10/21/19 24 10/22/2023 BASIC METAB OLIC PANEL (8) calcium 9.6 mg/dL 8.6-10 .2 Not Available [facility] ([facility]) [address] [facility], [place], [address], 10/23/2023 06:08:03 10/21/19 24 10/22/2023 TSH RFX ON ABNOR MAL TO FREE T4 TSH 2.180 uIU/m L 0.450- 4.500 Not Available [facility] ([facility]) [address] [facility], [place], [address], 10/23/2023 06:08:04 10/21/19 24 10/22/2023 MAGNE SIUM magnesium 2.2 mg/dL 1.6-2. 3 Not Available [facility] ([facility]) [address] [facility], [place], [address], 10/23/2023 06:08:04 06/12/20 24 06/12/2024 CBC WITH DIFFE RENTI AL/PL ATELE T WBC 5.7 x10e3 /uL 3.4-10 .8 normal Not Available [facility] ([facility]) [address] [facility], [place], [address], 06/13/2024 06:09:16 06/12/20 24 06/12/2024 CBC WITH DIFFE RENTI AL/PL ATELE T RBC 5.02 x10e6 /uL 4.14-5 .80 normal Not Available [facility] ([facility]) [address] [facility] [place], [address], 06/13/2024 06:09:16 06/12/20 24 06/12/2024 CBC WITH DIFFE RENTI AL/PL ATELE T hemoglobin 15.0 g/dL 13.0-1 7.7 normal Not Available [facility] ([facility]) [address] [place], [address], 06/13/2024 06:09:16 06/12/20 24 06/12/2024 CBC WITH DIFFE RENTI AL/PL ATELE T hematocrit 47.1 % 37.5-5 1.0 normal Not Available [facility] ([facility]) [address] [facility], [place], [address], 06/13/2024 06:09:16 06/12/20 24 06/12/2024 CBC WITH DIFFE RENTI AL/PL ATELE T MCV 94 fL 79-97 normal Not Available [facility] ([facility]) [address] [place], [address], 06/13/2024 06:09:16 06/12/20 24 06/12/2024 CBC WITH DIFFE RENTI AL/PL ATELE T MCH 29.9 pg 26.6-3 3.0 normal Not Available [facility] ([facility]) [address] [place], [address], 06/13/2024 06:09:16 06/12/20 24 06/12/2024 CBC WITH DIFFE RENTI AL/PL ATELE T MCHC 31.8 g/dL 31.5-3 5.7 normal Not Available [facility] ([facility]) [address] [place], [address], 06/13/2024 06:09:16 06/12/20 24 06/12/2024 CBC WITH DIFFE RENTI AL/PL ATELE T RDW 12.7 % 11.6-1 5.4 Not Available [facility] ([facility]) [address] [place], [address], 06/13/2024 06:09:16 06/12/20 24 06/12/2024 CBC WITH DIFFE RENTI AL/PL ATELE T platelets 219 x10e3 /uL 150-45 0 normal Not Available [facility] ([facility]) [address] [place], [address], 06/13/2024 06:09:16 06/12/20 24 06/12/2024 CBC WITH DIFFE RENTI AL/PL ATELE T neutrophils 51 % not estab. normal Not Available [facility] ([facility]) [address] [facility], [place], [address], 06/13/2024 06:09:16 06/12/20 24 06/12/2024 CBC WITH DIFFE RENTI AL/PL ATELE T lymphs 28 % not estab. normal Not Available [facility] ([facility]) [address] [facility], [place], [address], 06/13/2024 06:09:16 06/12/20 24 06/12/2024 CBC WITH DIFFE RENTI AL/PL ATELE T monocytes 12 % not estab. normal Not Available [facility] ([facility]) [address] [facility], [place], [address], 06/13/2024 06:09:16 06/12/20 24 06/12/2024 CBC WITH DIFFE RENTI AL/PL ATELE T eos 8 % not estab. normal Not Available [facility] ([facility]) [address] [facility], [place], [address], 06/13/2024 06:09:16 06/12/20 24 06/12/2024 CBC WITH DIFFE RENTI AL/PL ATELE T basos 1 % not estab. normal Not Available [facility] ([facility]) [address] [facility], [place], [address], 06/13/2024 06:09:16 06/12/20 24 06/12/2024 CBC WITH DIFFE RENTI AL/PL ATELE T immature cells JERSEY KNITTER Not Available [facility] ([facility]) [address] [facility], [place], [address], 06/13/2024 06:09:16 06/12/20 24 06/12/2024 CBC WITH DIFFE RENTI AL/PL ATELE T neutrophils (absolute) 2.9 x10e3 /uL 1.4-7. 0 normal Not Available [facility] ([place] [facility]) [address] [facility], [place], [address], 06/13/2024 06:09:16 06/12/20 24 06/12/2024 CBC WITH DIFFE RENTI AL/PL ATELE T lymphs (absolute) 1.6 x10e3 /uL 0.7-3. 1 normal Not Available [facility] ([facility]) [address] [facility], [place], [address], 06/13/2024 06:09:16 06/12/20 24 06/12/2024 CBC WITH DIFFE RENTI AL/PL ATELE T monocytes(ab solute) 0.7 x10e3 /uL 0.1-0. 9 normal Not Available [facility] ([facility]) [address] [facility], [place], [address], 06/13/2024 06:09:16 06/12/20 24 06/12/2024 CBC WITH DIFFE RENTI AL/PL ATELE T eos (absolute) 0.5 x10e3 /uL 0.0-0. 4 above high normal Not Available [facility] ([facility]) [address] [facility], [place], [address], 06/13/2024 06:09:16 06/12/20 24 06/12/2024 CBC WITH DIFFE RENTI AL/PL ATELE T baso (absolute) 0.1 x10e3 /uL 0.0-0. 2 normal Not Available [facility] ([facility]) [address] [place], [address], 06/13/2024 06:09:16 06/12/20 24 06/12/2024 CBC WITH DIFFE RENTI AL/PL ATELE T immature granulocytes 0 % not estab. Not Available [facility] ([facility]) [address] [facility], [place], [address], 06/13/2024 06:09:16 06/12/20 24 06/12/2024 CBC WITH DIFFE RENTI AL/PL ATELE T immature grans (abs) 0.0 x10e3 /uL 0.0-0. 1 Not Available [facility] ([facility]) [address] [facility], [place], [address], 06/13/2024 06:09:16 06/12/20 24 06/12/2024 CBC WITH DIFFE RENTI AL/PL ATELE T NRBC JERSEY KNITTER Not Available [facility] ([facility]) [address] [facility], [place], [address], 06/13/2024 06:09:16 06/12/2006/12/2024 CBC WITH DIFFE RENTI AL/PL ATELE T hematology comments: JERSEY KNITTER Not Available [facility] ([facility]) [address] [facility], [place], [address], 06/13/2024 06:09:16 06/12/20 24 06/13/2024 COMP. METAB OLIC PANEL (14) glucose 97 mg/dL 70-99 normal Not Available [facility] ([facility]) [address] [facility], [place], [address], 06/13/2024 06:09:16 06/12/20 24 06/13/2024 COMP. METAB OLIC PANEL (14) BUN 11 mg/dL 8-27 normal Not Available [facility] ([facility]) [address] [facility], [place], [address], 06/13/2024 06:09:16 06/12/20 24 06/13/2024 COMP. METAB OLIC PANEL (14) creatinine 1.12 mg/dL 0.76-1 .27 normal Not Available [facility] ([facility]) [address] [facility], [place], [address], 06/13/2024 06:09:16 06/12/20 24 06/13/2024 COMP. METAB OLIC PANEL (14) eGFR 72 mL/mi n/1.7 3 >59 normal Not Available [facility] ([facility]) [address] [place], [address], 06/13/2024 06:09:16 06/12/20 24 06/13/2024 COMP. METAB OLIC PANEL (14) BUN/creatini ne ratio 10 10-24 normal Not Available [facility] ([facility]) [address] [place], [address], 06/13/2024 06:09:16 06/12/20 24 06/13/2024 COMP. METAB OLIC PANEL (14) sodium 142 mmol/ L 134-14 4 normal Not Available [facility] ([facility]) [address] [place], [address], 06/13/2024 06:09:16 06/12/20 24 06/13/2024 COMP. METAB OLIC PANEL (14) potassium 4.4 mmol/ L 3.5-5. 2 normal Not Available [facility] ([facility]) [address] [place], [address], 06/13/2024 06:09:16 06/12/20 24 06/13/2024 COMP. METAB OLIC PANEL (14) chloride 102 mmol/ L 96-106 normal Not Available [facility] ([facility]) [address] [place], [address], 06/13/2024 06:09:16 06/12/20 24 06/13/2024 COMP. METAB OLIC PANEL (14) carbon dioxide, total 21 mmol/ L 20-29 normal Not Available [facility] ([facility] [facility]) [address] [place], [address], 06/13/2024 06:09:16 06/12/20 24 06/13/2024 COMP. METAB OLIC PANEL (14) calcium 9.4 mg/dL 8.6-10 .2 normal Not Available [facility] ([place] [facility]) [address] [place], [address], 06/13/2024 06:09:16 06/12/20 24 06/13/2024 COMP. METAB OLIC PANEL (14) protein, total 6.5 g/dL 6.0-8. 5 normal Not Available [facility] ([facility]) [address] [place], [address], 06/13/2024 06:09:16 06/12/20 24 06/13/2024 COMP. METAB OLIC PANEL (14) albumin 4.4 g/dL 3.9-4. 9 normal Not Available [facility] ([facility]) [address] [place], [address], 06/13/2024 06:09:16 06/12/20 24 06/13/2024 COMP. METAB OLIC PANEL (14) globulin, total 2.1 g/dL 1.5-4. 5 Not Available [facility] ([facility]) [address] [place], [address], 06/13/2024 06:09:16 06/12/20 24 06/13/2024 COMP. METAB OLIC PANEL (14) bilirubin, total 1.0 mg/dL 0.0-1. 2 normal Not Available [facility] ([facility]) [address] [place], [address], 06/13/2024 06:09:16 06/12/20 24 06/13/2024 COMP. METAB OLIC PANEL (14) alkaline phosphatase 70 IU/L 44-121 normal Not Available [facility] ([facility]) [address] [place], [address], 06/13/2024 06:09:16 06/12/20 24 06/13/2024 COMP. METAB OLIC PANEL (14) AST (SGOT) 36 IU/L 0-40 normal Not Available [facility] ([facility]) [address] [place], [address], 06/13/2024 06:09:16 06/12/20 24 06/13/2024 COMP. METAB OLIC PANEL (14) ALT (SGPT) 32 IU/L 0-44 normal Not Available [facility] ([facility]) [address] [facility], [place], [address], 06/13/2024 06:09:16 06/12/20 24 06/13/2024 LIPID PANEL cholesterol, total 167 mg/dL 100-19 9 normal Not Available [facility] ([facility]) [address] [facility] [place], [address], 06/13/2024 06:09:17 06/12/20 24 06/13/2024 LIPID PANEL triglyceride s 88 mg/dL 0-149 normal Not Available [facility] ([facility]) [address] [place], [address], 06/13/2024 06:09:17 06/12/20 24 06/13/2024 LIPID PANEL HDL cholesterol 61 mg/dL >39 normal Not Available [facility] ([facility]) [address] [place], [address], 06/13/2024 06:09:17 06/12/20 24 06/13/2024 LIPID PANEL VLDL cholesterol errol 16 mg/dL 5-40 Not Available [facility] ([facility]) [address] [place], [address], 06/13/2024 06:09:17 06/12/20 24 06/13/2024 LIPID PANEL LDL chol calc ([facility]) 90 mg/dL 0-99 Not Available [facility] ([facility]) [address] [place], [address], 06/13/2024 06:09:17 06/12/20 24 06/13/2024 LIPID PANEL LDL calc comment: JERSEY KNITTER Not Available [facility] ([facility]) [address] [place], [address], 06/13/2024 06:09:17 06/15/2006/16/2025 CMP14 +EGFR glucose 107 mg/dL 70-99 above high normal Not Available [facility] ([facility]) [address] [facility] [place], [address], 06/16/2025 08:09:30 06/15/20 25 06/16/2025 CMP14 +EGFR BUN 12 mg/dL 8-27 normal Not Available [facility] ([facility]) [address] [facility] [place], [address], 06/16/2025 08:09:30 06/15/2006/16/2025 CMP14 +EGFR creatinine 1.11 mg/dL 0.76-1 .27 normal Not Available [facility] ([facility]) [address] [place], [address], 06/16/2025 08:09:30 06/15/20 25 06/16/2025 CMP14 +EGFR eGFR 73 mL/mi n/1.7 3 >59 normal Not Available [facility] ([facility]) [address] [place], [address], 06/16/2025 08:09:30 06/15/20 25 06/16/2025 CMP14 +EGFR BUN/creatini ne ratio 11 10-24 normal Not Available [facility] ([facility]) [address] [place], [address], 06/16/2025 08:09:30 06/15/2006/16/2025 CMP14 +EGFR sodium 141 mmol/ L 134-14 4 normal Not Available [facility] [facility] [address] [place], [address], 06/16/2025 08:09:30 06/15/20 25 06/16/2025 CMP14 +EGFR potassium 4.5 mmol/ L 3.5-5. 2 normal Not Available [facility] ([facility]) [address] [facility], [place], [address], 06/16/2025 08:09:30 06/15/2006/16/2025 CMP14 +EGFR chloride 103 mmol/ L 96-106 normal Not Available [facility] ([facility]) [address] [facility], [place], [address], 06/16/2025 08:09:30 06/15/2006/16/2025 CMP14 +EGFR carbon dioxide, total 25 mmol/ L 20-29 normal Not Available [facility] ([facility]) [address] [facility], [place], [address], 06/16/2025 08:09:30 06/15/2006/16/2025 CMP14 +EGFR calcium 9.6 mg/dL 8.6-10 .2 normal Not Available [facility] ([facility]) [address] [facility], [place], [address], 06/16/2025 08:09:30 06/15/2006/16/2025 CMP14 +EGFR protein, total 6.6 g/dL 6.0-8. 5 normal Not Available [facility] ([facility]) [address] [facility], [place], [address], 06/16/2025 08:09:30 06/15/2006/16/2025 CMP14 +EGFR albumin 4.4 g/dL 3.9-4. 9 normal Not Available [facility] ([facility]) [address] [facility], [place], [address], 06/16/2025 08:09:30 06/15/2006/16/2025 CMP14 +EGFR globulin, total 2.2 g/dL 1.5-4. 5 Not Available [facility] ([facility]) [address] [facility], [place], [address], 06/16/2025 08:09:30 06/15/2006/16/2025 CMP14 +EGFR bilirubin, total 0.8 mg/dL 0.0-1. 2 normal Not Available [facility] ([facility]) [address] [facility], [place], [address], 06/16/2025 08:09:30 06/15/20 25 06/16/2025 CMP14 +EGFR alkaline phosphatase 68 IU/L 47-123 normal Not Available [facility] ([facility]) [address] [facility], [place], [address], 06/16/2025 08:09:30 06/15/20 25 06/16/2025 CMP14 +EGFR AST (SGOT) 28 IU/L 0-40 normal Not Available [facility] ([facility]) [address] [facility], [place], [address], 06/16/2025 08:09:30 06/15/2006/16/2025 CMP14 +EGFR ALT (SGPT) 30 IU/L 0-44 normal Not Available [facility] ([facility]) [address] [place], [address], 06/16/2025 08:09:30 06/15/20 25 06/15/2025 CBC WITH DIFFE RENTI AL/PL ATELE T WBC 5.2 x10e3 /uL 3.4-10 .8 normal Not Available [facility] ([facility]) [address] [place], [address], 06/16/2025 08:09:31 06/15/20 25 06/15/2025 CBC WITH DIFFE RENTI AL/PL ATELE T RBC 5.23 x10e6 /uL 4.14-5 .80 normal Not Available [facility] ([facility]) [address] [place], [address], 06/16/2025 08:09:31 06/15/20 25 06/15/2025 CBC WITH DIFFE RENTI AL/PL ATELE T hemoglobin 15.4 g/dL 13.0-1 7.7 normal Not Available [facility] ([facility]) [address] [facility], [place], [address], 06/16/2025 08:09:31 06/15/20 25 06/15/2025 CBC WITH DIFFE RENTI AL/PL ATELE T hematocrit 47.6 % 37.5-5 1.0 normal Not Available [facility] ([facility]) [address] [facility], [place], [address], 06/16/2025 08:09:31 06/15/20 25 06/15/2025 CBC WITH DIFFE RENTI AL/PL ATELE T MCV 91 fL 79-97 normal Not Available [facility] ([facility]) [address] [facility], [place], [address], 06/16/2025 08:09:31 06/15/20 25 06/15/2025 CBC WITH DIFFE RENTI AL/PL ATELE T MCH 29.4 pg 26.6-3 3.0 normal Not Available [facility] ([facility]) [address] [place], [address], 06/16/2025 08:09:31 06/15/20 25 06/15/2025 CBC WITH DIFFE RENTI AL/PL ATELE T MCHC 32.4 g/dL 31.5-3 5.7 normal Not Available [facility] ([facility]) [address] [place], [address], 06/16/2025 08:09:31 06/15/20 25 06/15/2025 CBC WITH DIFFE RENTI AL/PL ATELE T RDW 12.5 % 11.6-1 5.4 Not Available [facility] ([facility]) [address] [place], [address], 06/16/2025 08:09:31 06/15/20 25 06/15/2025 CBC WITH DIFFE RENTI AL/PL ATELE T platelets 235 x10e3 /uL 150-45 0 normal Not Available [facility] ([facility]) [address] [facility], [place], [address], 06/16/2025 08:09:31 06/15/20 25 06/15/2025 CBC WITH DIFFE RENTI AL/PL ATELE T neutrophils 50 % not estab. normal Not Available [facility] ([facility]) [address] [facility], [place], [address], 06/16/2025 08:09:31 06/15/20 25 06/15/2025 CBC WITH DIFFE RENTI AL/PL ATELE T lymphs 29 % not estab. normal Not Available [facility] ([facility]) [address] [facility], [place], [address], 06/16/2025 08:09:31 06/15/20 25 06/15/2025 CBC WITH DIFFE RENTI AL/PL ATELE T monocytes 12 % not estab. normal Not Available [facility] ([facility]) [address] [facility], [place], [address], 06/16/2025 08:09:31 06/15/20 25 06/15/2025 CBC WITH DIFFE RENTI AL/PL ATELE T eos 8 % not estab. normal Not Available [facility] ([facility]) [address] [facility], [place], [address], 06/16/2025 08:09:31 06/15/20 25 06/15/2025 CBC WITH DIFFE RENTI AL/PL ATELE T basos 1 % not estab. normal Not Available [facility] ([facility]) [address] [place], [address], 06/16/2025 08:09:31 06/15/20 25 06/15/2025 CBC WITH DIFFE RENTI AL/PL ATELE T immature cells JERSEY KNITTER Not Available [facility] ([facility]) [address] [place], [address], 06/16/2025 08:09:31 06/15/20 25 06/15/2025 CBC WITH DIFFE RENTI AL/PL ATELE T neutrophils (absolute) 2.6 x10e3 /uL 1.4-7. 0 normal Not Available [facility] ([facility]) [address] [facility], [place], [address], 06/16/2025 08:09:31 06/15/20 25 06/15/2025 CBC WITH DIFFE RENTI AL/PL ATELE T lymphs (absolute) 1.5 x10e3 /uL 0.7-3. 1 normal Not Available [facility] ([facility]) [address] [place], [address], 06/16/2025 08:09:31 06/15/20 25 06/15/2025 CBC WITH DIFFE RENTI AL/PL ATELE T monocytes(ab solute) 0.6 x10e3 /uL 0.1-0. 9 normal Not Available [facility] ([facility]) [address] [facility], [place], [address], 06/16/2025 08:09:31 06/15/20 25 06/15/2025 CBC WITH DIFFE RENTI AL/PL ATELE T eos (absolute) 0.4 x10e3 /uL 0.0-0. 4 normal Not Available [facility] ([facility]) [address] [place], [address], 06/16/2025 08:09:31 06/15/20 25 06/15/2025 CBC WITH DIFFE RENTI AL/PL ATELE T baso (absolute) 0.1 x10e3 /uL 0.0-0. 2 normal Not Available [facility] ([facility]) [address] [place], [address], 06/16/2025 08:09:31 06/15/20 25 06/15/2025 CBC WITH DIFFE RENTI AL/PL ATELE T immature granulocytes 0 % not estab. Not Available [facility] ([facility]) [address] [facility], [place], [address], 06/16/2025 08:09:31 06/15/20 25 06/15/2025 CBC WITH DIFFE RENTI AL/PL ATELE T immature grans (abs) 0.0 x10e3 /uL 0.0-0. 1 Not Available [facility] ([facility]) [address] [facility], [place], [address], 06/16/2025 08:09:31 06/15/20 25 06/15/2025 CBC WITH DIFFE RENTI AL/PL ATELE T NRBC JERSEY KNITTER Not Available [facility] ([facility]) [address] [facility], [place], [address], 06/16/2025 08:09:31 06/15/20 25 06/15/2025 CBC WITH DIFFE RENTI AL/PL ATELE T hematology comments: JERSEY KNITTER Not Available [facility] ([facility]) [address] [facility], [place], [address], 06/16/2025 08:09:31 06/15/20 25 06/16/2025 LIPID PANEL cholesterol, total 164 mg/dL 100-19 9 normal Not Available [facility] ([facility]) [address] [facility], [place], [address], 06/16/2025 08:09:32 06/15/20 25 06/16/2025 LIPID PANEL triglyceride s 79 mg/dL 0-149 normal Not Available [facility] ([facility]) [address] [facility], [place], [address], 06/16/2025 08:09:32 06/15/20 25 06/16/2025 LIPID PANEL HDL cholesterol 59 mg/dL >39 normal Not Available [facility] ([facility]) [address] [facility], [place], [address], 06/16/2025 08:09:32 06/15/20 25 06/16/2025 LIPID PANEL VLDL cholesterol errol 15 mg/dL 5-40 Not Available [facility] ([facility]) [address] [facility], [place], [address], 06/16/2025 08:09:32 06/15/20 25 06/16/2025 LIPID PANEL LDL chol calc ([facility]) 90 mg/dL 0-99 Not Available [facility] ([facility]) [address] [facility], [place], [address], 06/16/2025 08:09:32 06/15/20 25 06/16/2025 LIPID PANEL LDL calc comment: JERSEY KNITTER Not Available [facility] ([facility]) [address] [facility], [place], [address], 06/16/2025 08:09:32 06/15/2006/15/2025 PSA TOTAL (REFL EX TO FREE) reflex criteria Commen t The perce nt free PSA is perfo rmed on a refle x basis only when the total PSA is betwe en 4.0 and 10.0 ng/mL . Not Available [facility] ([facility]) [address] [facility], [place], [address], 06/16/2025 08:09:32 06/15/2006/16/2025 PSA TOTAL (REFL EX TO FREE) prostate specific Ag 0.5 NG/mL 0.0-4. 0 normal Rashid ECLIA metho dolog y. Accor ding to the Ameri can Urolo gical Assoc iatio n, Serum PSA shoul d decre ase and remai n at undet ectab le level s after radic al prost atect snehal. The AUA defin es bioch emica l recur rence as an initi al PSA value 0.2 ng/mL or great er follo wed by a subse quent confi rmato ry PSA value 0.2 ng/mL or great er. Value s obtai roxanne with diffe rent assay metho ds or kits canno t be used inter wright eably . Resul ts canno t be inter prete d as absol cachil dehe evide nce of the prese nce or absen ce of alison mercado se. Not Available [facility] ([facility]) [address] [facility], [place], [address], 06/16/2025 08:09:32 06/15/20 25 06/16/2025 MAGNE SIUM magnesium 2.2 mg/dL 1.6-2. 3 normal Not Available [facility] ([facility]) [address] [facility], [place], [address], 06/16/2025 08:09:33 04/21/20 23 04/20/2023 US, abdom en No observ ation record ed. [email or web address] Not Available 04/12 09:00:39 10/21/19 24 10/21/2023 elect rocar diogr am No observ ation record ed. [email or web address] In-Office Order Internal Use Only DO Not Attach Compendium DO Not Attach Compendium, Do Not Delete/merge, [id number] 11/11/2023 09:46:24 10/21/19 24 elect rocar diogr am No observ ation record ed. [email or web address] In-Office Order Internal Use Only DO Not Attach Compendium DO Not Attach Compendium, Do Not Delete/merge, [id number] 10/21/2023 16:39:43 01/07/20 24 01/03/2024 trans -thor acic echoc ardio gram (TTE) (PROC ) No observ ation record ed. [email or web address] Not Available 01/07 09:19:19 06/18/20 25 06/17/2025 CT heart w/o dye luther eval CT Heart W/O Dye Luther Eval INDICA TION: Reason : E78.5 HYPERL IPIDEM IA UNSPEC ; Clinic al Questi on(s): Other: . Male of age 69 , race White COMPAR ADDY: None TECHNI QUE: Brooks ry artery Calciu m Scorin g. After a locali zing court attendant image was obtain ed, an ECG-ga kerry noncon trast exam was obtain ed of the heart in late diasto le. The region of intere st was limite d to the heart in order to optimi ze image qualit y. Weight -based protoc ol using automa tic tube modula tion was used to optimi ze exposu re parame ters. A Neusof t 64 scanne r was used, with Agatst on scorin g perfor med using TeraRe con (iNTUI TION) web-ba sed softwa re. This proced ure is not being perfor med on this patien t for preope rative evalua tion for low-ri sk surger y within 30 days. CTDIvo l Body: 7.02 mGy, DLP Body: 119 mGy*cm . FINDIN GS: Brooks ry Calciu m Scorin g Summar y: Left Main: Score 75.1 . LAD: Score 97.8 . Circum flex: Score 33.6 . Right: Score 53.5 . Ramus: Score 0 . TOTAL: Score 260 . Non-co ronary Findin gs: An incide ntal 2 mm nodule in the left lower lobe is usuall y benign . Unrema rkable chest wall. Normal size aorta. Mild aortic valve calcif icatio n. Normal size heart. No adenop athy. A subcen timete r low densit y nodule in the left liver is usuall y benign . No acute bony findin gs. IMPRES NAIN: The Agatst on brooks ry calciu m score is 260 . The observ ed calciu m score is at the 67 percen tile (CASTELLANO) . The Multi- Ethnic Study of Athero sclero sis (CASTELLANO) trial on-mike e calcul ator can be used to determ ine the probab ility of having brooks ry calcif icatio n and the calciu m score percen tile for subjec ts based on age, gender and race/e thnici ty who are free of clinic al cardio vascul ar diseas e and treate d diabet es: http:/ [email or web address] [email or web address].or g/Calc ium/in put.as px WSN: [id number] Orderi ng Physic saeed: Carlo Pichardo Dictat ed By: Elaine Jacobson MD Dictat ed Date/T emmanuel: 5:54 pm Review ed By: Elaine Jacobson MD Signed By: Elaine Jacobson MD Signed Date/T emmanuel: 5:54 pm Transc ribed By: TREE Transc ribed Date/T emmanuel: 5:52 pm Patien t Class: Outpat ient [email or web address] [facility] (Outpt Imaging) [address] , [place], [address], 07/07/2025 13:34:11 Result Notes None recorded. 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 Had TURP in 2020. Carlo Aleman MD [address], [place], [address] , [facility] 3 08:15:51 Intermit tent dysphagi a 40622579 Active Not Available [facility] 1 13:54:53 General examinat ion of patient Completed 200803/02/2014 RECORDED 11/25/19 09 12:47PM BY CARLO LOPEZ MD, ANNOTATI ON/ADDEN DUM Calro Aleman MD [address], [place], [address] , [facility] 6 12:49:44 General examinat ion of patient Completed 200803/22/2014 RECORDED 11/25/19 09 12:47PM BY CARLO LOPEZ MD, ANNOTATI ON/ADDEN DUM Carlo Aleman MD [address], [place], [address] , [facility] 6 12:49:44 Screenin g for malignan t neoplasm of colon Completed 201003/02/2014 RECORDED 03/21/20 11 3:03PM BY LASHON LEI MD [address] [facility] [address], [place], [address] , [facility] 6 12:49:44 Acute pharyngi tis [id number] Completed 201203/02/2014 RECORDED 02/03/20 13 2:19PM BY MOSHE CHACKO ON/DANISHA Aleman MD [address] [facility] [address], [place], [address] , [facility] 6 12:49:44 Dysphagi a [id number] Completed 201203/02/2014 RECORDED 02/03/20 13 2:19PM BY MOSHE CHACKO ON/DANISHA Aleman MD [address] [facility] [address], [place], [address] , [facility] 6 12:49:44 Nocturia 810721124 Completed 201203/02/2014 RECORDED 02/03/20 13 2:19PM BY MOSHE CHACKO ON/DANISHA Aleman MD [address] [facility] [address], [place], [address] , [facility] 6 12:49:44 Eruption [id number] Completed 201203/02/2014 IMPRESSI ON: LESION AT LEFT UPPER ARM APPEARS TO BE A WART BUT HAS SOME ATYPICAL FEATURES ; RECORDED 02/03/20 13 2:19PM BY MOSHE CHACKO ON/DANISHA Aleman MD [address] [facility] [address], [place], [address] , [facility] 6 12:49:44 Acute sinusiti s 85401425 Completed 201203/02/2014 IMPRESSI ON: WORSENIN G SINUS SXS, PND AND THROAT IRRIATIO N W/URI PAST TWO WEEKS. START ABX, NASAL CS SPRAY. ADVISED RE REST, FLUIDS, OTC ANALGESI C AND NASAL SALINE. TO CALL FOR WORSENIN G/PRN.; RECORDED 02/03/20 13 2:19PM BY MOSHE CHACKO ON/DANISHA Aleman MD [address] [address], [place], [address] , [facility] 6 12:49:44 Dermatop hytosis of the perianal area Completed 201203/02/2014 RECORDED 02/03/20 13 2:19PM BY MOSHE CHACKO/DANISHA Aleman MD [address] [address], [place], [address] , [facility] 6 12:49:44 Acute pharyngi tis [id number] Completed 201203/22/2014 RECORDED 02/03/20 13 2:19PM BY MOSHE CHACKO/DANISHA Aleman MD [address] [address], [place], [address] , [facility] 6 12:49:44 Dysphagi a [id number] Completed 201203/22/2014 RECORDED 02/03/20 13 2:19PM BY MOSHE CHACKO/DANISHA Aleman MD [address] [address], [place], [address] , [facility] 6 12:49:44 Nocturia [id number] Completed 201203/22/2014 RECORDED 02/03/20 13 2:19PM BY MOSHE CHACKO/DANISHA Aleman MD [address] [facility] [address], [place], [address] , [facility] 6 12:49:44 Eruption [id number] Completed 201203/22/2014 IMPRESSI ON: LESION AT LEFT UPPER ARM APPEARS TO BE A WART BUT HAS SOME ATYPICAL FEATURES ; RECORDED 02/03/20 13 2:19PM BY MOSHE CHACKO ON/DANISHA Aleman MD [address] [facility] [address], [place], [address] , [facility] 6 12:49:44 Acute sinusiti s 14107226 Completed 201203/22/2014 IMPRESSI ON: WORSENIN G SINUS SXS, PND AND THROAT IRRIATIO N W/URI PAST TWO WEEKS. START ABX, NASAL CS SPRAY. ADVISED RE REST, FLUIDS, OTC ANALGESI C AND NASAL SALINE. TO CALL FOR WORSENIN G/PRN.; RECORDED 02/03/20 13 2:19PM BY MOSHE CHACKO/DANISHA Aleman MD [address] [facility] [address], [place], [address] , [facility] 6 12:49:44 Dermatop hytosis of the perianal area Completed 201203/22/2014 RECORDED 02/03/20 13 2:19PM BY MOSHE CHACKO/DANISHA Aleman MD [address] [facility] [address], [place], [address] , [facility] 6 12:49:44 Screenin g for malignan t neoplasm of colon Completed 201308/13/2014 RECORDED 02/04/20 14 10:07AM BY CARLO LOPEZ MD, OFFICE VISIT Carlo Aleman MD [address] [facility] [address], [place], [address] , [facility] 6 12:49:44 Conjunct ivitis [id number] Completed 201307/06/2014 RECORDED 02/04/20 14 9:37AM BY JENNIFER FRIAS I, OFFICE VISIT Carlo Aleman MD [address] [facility] [address], [place], [address] , [facility] 6 12:49:44 Hyperlip idemia 12422733 Active 2013 RECORDED 02/04/20 14 9:50AM BY CARLO LOPEZ MD, OFFICE VISIT Carlo Aleman MD [address] [address], [place], [address] , [facility] 2 09:17:43 Low back pain 458329129 Active 2013 RECORDED 02/04/20 14 9:37AM BY JENNIFER FRIAS I, OFFICE VISIT Not Available [facility] 1 13:54:53 Patient status finding [id number] Completed 201307/06/2014 RECORDED 02/04/20 14 9:38AM BY JENNIFER FRIAS I, OFFICE VISIT Carlo Aleman MD [address] [facility] [address], [place], [address] , [facility] 6 12:49:44 Adult health examinat ion Completed 201307/06/2014 RECORDED 02/04/20 14 9:38AM BY JENNIFER FRIAS I, OFFICE VISIT Carlo Aleman MD [address] [facility] [address], [place], [address] , [facility] 6 12:49:44 Cramp in limb 901017520 Active 2013 IMPRESSI ON: DISCUSSE D HYDRATIO N, STRETCHI NG, IRON AND ZINC. 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 Not Available [facility] 13:54:53 Erectile dysfunct ion 551765409 Active 2020 Using viagra Not Available [facility] 13:54:53 History of SARS-CoV -2 [id number] 8697952 Active 2021 Pascual Polo RN null, [facility] 2 15:50:03 Left sided abdomina l pain 749622192 Active 2022 Seen by GI; most likely related to constipa tion. Carlo Aleman MD [address], [place], [address] , [facility] 3 16:25:53 Elevated blood-pr essure reading without diagnosi s of hyperten nain 239442122 Active 2023 brooke gudino [facility] 4 13:14:09 Dizzines s 134946330 Active 2023 brooke gudino [facility] 4 13:29:13 Benign paroxysm al position al vertigo 471797668 Active 2023 brooke gudino [facility] 4 13:39:34 Fatigue 41539953 Active 2023 brooke gudino [facility] 4 14:09:30 Paroxysm al atrial fibrilla tion 998293479 Active 2023 Seen in [facility] Carlo Aleman MD [address], [place], [address] , [facility] 4 12:12:26 COVID-19 606395603 Active 2023 Pascual Polo RN null, [facility] 4 16:10:32 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 Procedures Surgical History Date Name Laterality Status Provider Name and Address Organization Details Recorded Time 06/04/20 25 implantation of insertable loop recorder completed Veronique Araujo MA [facility] 06/08/2025 13:59:31 01/03/20 24 Echo transthoracic completed Katarina Anne [facility] 01/08/2024 09:16:57 06/18/20 22 Colonoscopy completed Jayshree Araiza [facility] 06/20/2022 13:25:16 11/23/19 21 cystoscopy completed Laly Cabral [facility] 11/24/2020 10:52:37 11/23/19 21 Prostate Surgery completed Rebecca Shea MA [facility] 05/03/2021 14:05:21 02/11/20 18 Egd diagnostic brush wash completed Lelia Ho [facility] 02/13/2018 15:11:28 Thyroid Surgery completed Rebecca renteria MA [facility] 05/03/2021 14:05:21 Imaging Results None recorded. Procedure Notes None recorded. Medical Equipment None Reported. Allergies Allergen ID Allergen Name Allergen Category Reaction Reaction Severity Criticality Documentation Date Start Date Code Code System Note Provider Name and Address Organization Details Recorded Time 9182 Product containin g penicilli n (product) medicatio n Not available Not available Not available 02/23/20142013 37885 8001 SNOMED COMME NT: RECOR DED 02/03 9:37A M BY JENNIFER GREENBERG, OFFIC E VISIT ; Not Available [facility] 4 09:47:58 Medications Name Sig Start Date Stop Date Status Note LastModified by Organization Details LastModified Time urinary pain relief tablets 30s TAKE 1 TABLET BY MOUTH EVERY 8 HOURS NEEDED FOR URINARY DISCOMFO RT 05/14 completed Not Available Not Available Not Available carisopro dol 350 mg tablet QHS PRN SPASM 07/29 completed RECORDED 09/20/19 10 10:09AM BY SHAQ Weller MD, MEDICATI ON AUTO-DORIS CTIVATIO N; Not Available Not Available Not Available azithromy zafar 250 mg capsule ONE TIME DAY ONE, FOLLOWED BY ONE TAB DAILY DAYS 2-5 07/28 completed RECORDED 08/28/19 12 8:10PM BY ADDY LANZA, PATamicaC, MEDICATI ON AUTO-DORIS CTIVATIO N; Not Available Not Available Not Available atorvasta tin 40 mg tablet TAKE ONE TABLET BY MOUTH AT BEDTIME 2024 active Not Available Not Available Not Avai lable desoximet asone 0.25 % topical cream 05/10 completed Not Available Not Available Not Available ketoconaz ole 2 % shampoo APPLY TWICE A WEEK PER REGINALD active Not Available Not Available No t Available lovastati n 40 mg tablet TAKE 1 TABLET DAILY AT BEDTIME 05/06 completed Not Available Not Available Not Available fluocinon vasu 0.05 % topical ointment Apply 1 applicat ion every day by topical route for 10 days. 05/02 completed Not Available Not Available Not Available ciproflox acin 500 mg tablet TAKE 1 TABLET BY MOUTH TWICE DAILY 05/14 completed Not Available Not Available Not Available sulfameth oxazole 800 mg-trimet hoprim 160 mg tablet TAKE 1 TABLET BY MOUTH TWICE DAILY DIRECTED 05/14 completed Not Available Not Available Not Available triamcino lone acetonide 0.1 % topical cream APPLY THIN LAYER TOPICALL Y TO THE AFFECTED AREA TWICE DAILY active Not Available Not Available No t Available Fluticaso ne Propionat e (Inhal) 50 mcg/BLIST inhl powd DAILY USE 1 SPRAY (50 MCG) IN EACH NOSTRIL 2010 active RECORDED 02/03/20 13 2:36PM BY JENNIFER FRIAS I, OFFICE VISIT; Not Available Not Available Not Available tacrolimu s 0.1 % topical ointment APPLY TO AA IN GENITAL REGION BID FOR UP TO 6 WEEKS MAY BURN WHEN APPLIED 05/08 completed Not Available Not Available Not Available ranitidin e 150 mg tablet Take 1 tablet every day by oral route. 05/02 completed Not Available Not Available Not Available clotrimaz ole-betam ethasone 1 %-0.05 % topical cream APPLY TOPICALL Y TO THE AFFECTED AREA TWICE DAILY 05/14 completed Not Available Not Available Not Available hyoscyami ne 0.125 mg sublingua l tablet 05/02 completed Not Available Not Available Not Available clobetaso l 0.05 % topical foam Apply 1 applicat ion every day by topical route for 20 days. 02/17 completed Not Available Not Available Not Available polymyxin B sulfate 10,000 unit-trim ethoprim 1 mg/mL eye drops EVERY 3 HOURS 07/30 completed RECORDED 08/28/19 12 8:10PM BY ADDY LANZA PA-C, MEDICATI ON AUTO-DORIS CTIVATIO N; Not Available Not Available Not Available cefuroxim e axetil 500 mg tablet active Not Available Not Available Not Available ketoconaz ole 2 % topical cream TWO TIMES DAILY 02/14 completed RECORDED 02/15/20 11 5:01PM BY CARLO LOPEZ MD, ANNOTATI ON/ADDEN DUM; Not Available Not Available Not Available betametha sone dipropion ate 0.05 % lotion APPLY TO SCALP TWICE DAILY WHEN FLARED/I TCHY UP TO 2 WEEKS ON AND 1 WEEK OFF. AVOID FACE. CAN REPEAT AFTER OFF WEEK 06/09 completed Not Available Not Available Not Available finasteri de 5 mg tablet Take 1 tablet every day by oral route for 90 days. 05/08 completed Not Available Not Available Not Available oxycodone 5 mg tablet TAKE 1 TABLET BY MOUTH EVERY 4 HOURS NEEDED FOR PAIN 05/08 completed Not Available Not Available Not Available azithromy zafar 500 mg tablet active Not Available Not Available No t Available alfuzosin ER 10 mg tablet,ex tended release 24 hr Take 1 tablet every day by oral route for 90 days. 05/02 completed Not Available Not Available Not Available tizanidin e 4 mg capsule Take 1 capsule 3 times a day by oral route for 7 days. 02/06 completed Not Available Not Available Not Available chlorhexi dine gluconate 0.12 % mouthwash SWISH 15ML IN MOUTH AFTER EVERY MEAL THEN SPIT OUT USE FOR 7 DAYS DO NOT SWALLOW 05/14 completed Not Available Not Available Not Available Fish Oil active Not Available Not Avai lable Not Available Adacel(Td ap Adolesn/A dult)(PF) ONE TIME DOSE 02/19 completed RECORDED 02/20/20 07 5:37PM BY CARLO LOPEZ MD, MEDICATI ON AUTO-DORIS CTIVATIO N; Not Available Not Available Not Available GaviLyte- N 420 gram oral solution 02/17 completed Not Available Not Available Not Available Multi Vitamin 1 PO QD 05/02 completed Not Available Not Available Not Available Flucelvax Quad (PF) 60 mcg (15 mcg x 4)/0.5 mL IM syringe ADM 0.5ML IM UTD 05/02 completed Not Available Not Available Not Available aspirin 81 mg capsule Take 1 capsule every day by oral route. active Not Available Not Available No t Available Flowflex COVID-19 Antigen Home Test kit 05/14 completed Not Available Not Available Not Available Vitals Date Recorded Body height Body mass index (BMI) Body weight Heart rate Oxygen saturation Body temperature Systolic And Diastolic Provider Name and Address Organization Details Last Updated DateTime 4 173.99 cm 31.5 kg/m2 73387.4 g 48 /min 98 % 98.1 [degF] 165/95 mm[Hg] Veronique Araujo MA [facility] 4 13:05:36 Date Recorded Heart rate Systolic And Diastolic Provider Name and Address Organization Details Last Updated DateTime 10/21/2023 62 /min 144/82 mm[Hg] brooke castillo [facility] 10/21/2023 13:21:47 Date Recorded Body height Body mass index (BMI) Body weight Heart rate Oxygen saturation Body temperature Systolic And Diastolic Provider Name and Address Organization Details Last Updated DateTime 4 173.99 cm 31.5 kg/m2 92847.4 g 57 /min 96 % 98.5 [degF] 124/80 mm[Hg] Veronique Araujo MA [facility] 4 09:27:10 Date Recorded Body height Body mass index (BMI) Body weight Heart rate Oxygen saturation Body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 house work with limited or no assistance,able to grocery shop with limited or no assistance,able to manage medications with limited or no assistance,able to manage money with limited or no assistance,able to prepare meals with limited or no assistance, andable to use the phone with limited or no assistance. For falls risk assessment, patient reportsno frequent falls while walking. Generic HPI TemplateReported by Patient Exercises regularly and is very active.He retired earlier this year and happy that he did.UTD with COVID vaccines until 2021 and I advised him to get the current vaccine.UTD with tetanus and shingles vaccine.Due for a prevnar 20 which he will get at his pharmacy.Will give him a flu vaccine today.ROS as noted in the HPI Carlo Aleman MD [address] [address], [place], [address], [facility] 06/09/2024 17:30:47 06/08/2025 text/html Medicare Annual Wellness VisitReported by PatientSocial/Behavior al HistoryFor diet and nutrition, patient reportshealthy diet. For fracture risk, patient reportsno history of fractures. For physical activity, patient reportsexercises on a regular basisandgood physical condition.Mental Status:For depression risk, patient reportsnever feels sad, empty, or tearful,no loss of interest in activities,no significant changes in weight,no sleep disturbances or insomnia,no loss of energy,no feelings of worthlessness or guilt,no thoughts of suicide,no history of depression, andno history of mood disorders. For orientation, patient reportsno disorientation to time,no disorientation to date, andno disorientation to place. For concentration and memory, patient reportsno decreased concentrating ability,no memory lapses or loss, anddoes not forget words. For speech/motor difficulties, patient reportsno speech difficultiesandno difficulty expressing formulated concepts.Functional AbilityFor hearing, patient reportsno loss of hearing. For vision, patient reportsno vision problems. For activities of daily living, patient reportsable to bathe with limited or no assistance,able to contol urination and bowels,able to dress with limited or no assistance,able to feed self with limited or no assistance,able to get out of chair or bed with limited or no assistance,able to groom with limited or no assistance, andable to toilet with limited or no assistance. For instrumental activities of daily living, patient reportsable to do house work with limited or no assistance,able to grocery shop with limited or no assistance,able to manage medications with limited or no assistance,able to manage money with limited or no assistance,able to prepare meals with limited or no assistance, andable to use the phone with limited or no assistance. For falls risk assessment, patient reportsno frequent falls while walking. Generic HPI TemplateReported by Patient Exercises regularly and is very active.He retired in November 2023UTD with tetanus and shingles vaccine.Due for a prevnar 20 which he will get at his pharmacy.Will give him a flu vaccine today.ROS as noted in the HPI Carlo Aleman MD [address] [address], [place], [address], [facility] 06/08/2025 18:05:49
--- OUTSIDE RECORDS SUMMARY | 2025-07-29 02:24 | XMS_ITS | Continuity of Care Document ---
Author Organization [facility], Main Office Address [address] [facility] [address] [place] [address] Care Team Providers Care Digital Engineer Name Role Phone GIANNI ALEMAN Primary Care Provider ALYX VILLASENOR Urologist MERISSA ALMANZA Web Marketing Specialist MARVIN LUONG Referring Provider [phone] DANIEL ALMODOVAR Referring Provider [phone] LOVE FIGUEROA Referring Provider [phone] Assessment No assessment recorded. Plan of Treatment Reminders Order Date Submit Date Provider Last Modified By Organization Details Last Modified Time Details Appointments None recorded. Lab PSA, serum or plasma 2024 GILBERT [...] Choice, 08:09:31 CMP, serum or plasma 2024 025 GILBERT [facility] (Centralized Electronic Ordering - All Locations), Patient Can Go To The Location Of Their Choice, 08:09:30 magnesium, serum or plasma 2024 GILBERT [facility] (Centralized Electronic Ordering - All Locations), Patient Can Go To The Location Of Their Choice, [address] 08:09:33 Referral None recorded. Procedures None recorded. Surgeries None recorded. Imaging CT, coronary calcium score - Self Pay On cholesterol meds. 2024 anna [facility], [address] [facility], [place], [address], 14:32:26 Medication Orders None recorded. Patient TargetsNo targets recorded. Patient Instructions Encounter Date Encounter Id Patient Instructions Last Modified By Organization Details Last Modified Time 06/08/2025 [id number] high cholesterol: care instructions [email or web address] Not available 06/08/2025 14:27:07 Reason for Referral None Reported. Results Created Date Observation Date Name Description Value Unit Range Abnormal Flag Note LastModifiedBy Organization Detail LastModifiedTime 06/15/2006/16/2025 CMP14 +EGFR glucose 107 mg/dL 70-99 above high normal Not Available [facility] ([facility]) [address] [place], [address], 06/16/2025 08:09:30 06/15/2006/16/2025 CMP14 +EGFR BUN 12 mg/dL 8-27 normal Not Available [facility] ([facility]) [address] [place], [address], 06/16/2025 08:09:30 06/15/20 25 06/16/2025 CMP14 +EGFR creatinine 1.11 mg/dL 0.76-1 .27 normal Not Available [facility] ([facility]) [address] [place], [address], 06/16/2025 08:09:30 06/15/20 25 06/16/2025 CMP14 +EGFR eGFR 73 mL/mi n/1.7 3 >59 normal Not Available [facility] ([facility]) [address] [place], [address], 06/16/2025 08:09:30 06/15/20 25 06/16/2025 CMP14 +EGFR BUN/creatini ne ratio 11 10-24 normal Not Available [facility] ([facility]) [address] [facility], [place], [address], 06/16/2025 08:09:30 06/15/20 25 06/16/2025 CMP14 +EGFR sodium 141 mmol/ L 134-14 4 normal Not Available [facility] ([facility]) [address] [facility], [place], [address], 06/16/2025 08:09:30 06/15/2006/16/2025 CMP14 +EGFR potassium 4.5 mmol/ L 3.5-5. 2 normal Not Available [facility] ([facility]) [address] [facility], [place], [address], 06/16/2025 08:09:30 06/15/20 25 06/16/2025 CMP14 +EGFR chloride 103 mmol/ L 96-106 normal Not Available [facility] ([facility]) [address] [place], [address], 06/16/2025 08:09:30 06/15/20 25 06/16/2025 CMP14 +EGFR carbon dioxide, total 25 mmol/ L 20-29 normal Not Available [facility] ([facility]) [address] [place], [address], 06/16/2025 08:09:30 06/15/20 25 06/16/2025 CMP14 +EGFR calcium 9.6 mg/dL 8.6-10 .2 normal Not Available [facility] ([facility]) [address] [place], [address], 06/16/2025 08:09:30 06/15/20 25 06/16/2025 CMP14 +EGFR protein, total 6.6 g/dL 6.0-8. 5 normal Not Available [facility] ([facility]) [address] [facility], [place], [address], 06/16/2025 08:09:30 06/15/2006/16/2025 CMP14 +EGFR albumin 4.4 g/dL 3.9-4. 9 normal Not Available [facility] ([facility]) [address] [facility] [place], [address], 06/16/2025 08:09:30 06/15/20 25 06/16/2025 CMP14 +EGFR globulin, total 2.2 g/dL 1.5-4. 5 Not Available [facility] ([facility]) [address] [facility] [place], [address], 06/16/2025 08:09:30 06/15/20 25 06/16/2025 CMP14 +EGFR bilirubin, total 0.8 mg/dL 0.0-1. 2 normal Not Available [facility] ([facility]) [address] [facility], [place], [address], 06/16/2025 08:09:30 06/15/20 25 06/16/2025 CMP14 +EGFR alkaline phosphatase 68 IU/L 47-123 normal Not Available [facility] ([facility]) [address] [facility], [place], [address], 06/16/2025 08:09:30 06/15/20 25 06/16/2025 CMP14 +EGFR AST (SGOT) 28 IU/L 0-40 normal Not Available [facility] ([facility]) [address] [facility], [place], [address], 06/16/2025 08:09:30 06/15/20 25 06/16/2025 CMP14 +EGFR ALT (SGPT) 30 IU/L 0-44 normal Not Available [facility] ([facility]) [address] [facility] [place], [address], 06/16/2025 08:09:30 06/15/20 25 06/15/2025 CBC WITH DIFFE RENTI AL/PL ATELE T WBC 5.2 x10e3 /uL 3.4-10 .8 normal Not Available [facility] ([facility]) [address] [place], [address], 06/16/2025 08:09:31 06/15/20 25 06/15/2025 CBC WITH DIFFE RENTI AL/PL ATELE T RBC 5.23 x10e6 /uL 4.14-5 .80 normal Not Available [facility] ([facility]) [address] [facility], [place], [address], 06/16/2025 08:09:31 06/15/2006/15/2025 CBC WITH DIFFE RENTI AL/PL ATELE T hemoglobin 15.4 g/dL 13.0-1 7.7 normal Not Available [facility] ([facility]) [address] [place], [address], 06/16/2025 08:09:31 06/15/20 25 06/15/2025 CBC WITH DIFFE RENTI AL/PL ATELE T hematocrit 47.6 % 37.5-5 1.0 normal Not Available [facility] ([facility]) [address] [place], [address], 06/16/2025 08:09:31 06/15/20 25 06/15/2025 CBC WITH DIFFE RENTI AL/PL ATELE T MCV 91 fL 79-97 normal Not Available [facility] ([facility]) [address] [place], [address], 06/16/2025 08:09:31 06/15/20 25 06/15/2025 CBC WITH DIFFE RENTI AL/PL ATELE T MCH 29.4 pg 26.6-3 3.0 normal Not Available [facility] ([facility]) [address] [place], [address], 06/16/2025 08:09:31 06/15/20 25 06/15/2025 CBC WITH DIFFE RENTI AL/PL ATELE T MCHC 32.4 g/dL 31.5-3 5.7 normal Not Available [facility] ([facility]) [address] [facility], [place], [address], 06/16/2025 08:09:31 06/15/20 25 06/15/2025 CBC WITH DIFFE RENTI AL/PL ATELE T RDW 12.5 % 11.6-1 5.4 Not Available [facility] ([facility]) [address] [facility], [place], [address], 06/16/2025 08:09:31 06/15/2006/15/2025 CBC WITH DIFFE RENTI AL/PL ATELE T platelets 235 x10e3 /uL 150-45 0 normal Not Available [facility] ([facility]) [address] [facility], [place], [address], 06/16/2025 08:09:31 06/15/20 25 06/15/2025 CBC WITH DIFFE RENTI AL/PL ATELE T neutrophils 50 % not estab. normal Not Available [facility] ([facility]) [address] [facility], [place], [address], 06/16/2025 08:09:31 06/15/20 25 06/15/2025 CBC WITH DIFFE RENTI AL/PL ATELE T lymphs 29 % not estab. normal Not Available [facility] ([facility]) [address] [facility], [place], [address], 06/16/2025 08:09:31 06/15/20 25 06/15/2025 CBC WITH DIFFE RENTI AL/PL ATELE T monocytes 12 % not estab. normal Not Available [facility] ([facility]) [address] [facility], [place], [address], 06/16/2025 08:09:31 06/15/20 25 06/15/2025 CBC WITH DIFFE RENTI AL/PL ATELE T eos 8 % not estab. normal Not Available [facility] ([facility]) [address] [facility], [place], [address], 06/16/2025 08:09:31 06/15/20 25 06/15/2025 CBC WITH DIFFE RENTI AL/PL ATELE T basos 1 % not estab. normal Not Available [facility] ([facility]) [address] [facility], [place], [address], 06/16/2025 08:09:31 06/15/20 25 06/15/2025 CBC WITH DIFFE RENTI AL/PL ATELE T immature cells SPECIAL EDUCATION CLASSROOM AIDE Not Available [facility] ([facility]) [address] [facility], [place], [address], 06/16/2025 08:09:31 06/15/20 25 06/15/2025 CBC WITH DIFFE RENTI AL/PL ATELE T neutrophils (absolute) 2.6 x10e3 /uL 1.4-7. 0 normal Not Available [facility] ([facility]) [address] [place], [address], 06/16/2025 08:09:31 06/15/20 25 06/15/2025 CBC WITH DIFFE RENTI AL/PL ATELE T lymphs (absolute) 1.5 x10e3 /uL 0.7-3. 1 normal Not Available [facility] ([facility]) [address] [place], [address], 06/16/2025 08:09:31 06/15/20 25 06/15/2025 CBC WITH DIFFE RENTI AL/PL ATELE T monocytes(ab solute) 0.6 x10e3 /uL 0.1-0. 9 normal Not Available [facility] ([facility]) [address] [place], [address], 06/16/2025 08:09:31 06/15/20 25 06/15/2025 CBC WITH DIFFE RENTI AL/PL ATELE T eos (absolute) 0.4 x10e3 /uL 0.0-0. 4 normal Not Available [facility] ([facility]) [address] [facility], [place], [address], 06/16/2025 08:09:31 06/15/20 25 06/15/2025 CBC WITH DIFFE RENTI AL/PL ATELE T baso (absolute) 0.1 x10e3 /uL 0.0-0. 2 normal Not Available [facility] ([facility]) [address] [facility], [place], [address], 06/16/2025 08:09:31 06/15/2006/15/2025 CBC WITH DIFFE RENTI AL/PL ATELE T immature granulocytes 0 % not estab. Not Available [facility] ([facility]) [address] [facility], [place], [address], 06/16/2025 08:09:31 06/15/2006/15/2025 CBC WITH DIFFE RENTI AL/PL ATELE T immature grans (abs) 0.0 x10e3 /uL 0.0-0. 1 Not Available [facility] ([facility]) [address] [facility], [place], [address], 06/16/2025 08:09:31 06/15/20 25 06/15/2025 CBC WITH DIFFE RENTI AL/PL ATELE T NRBC SPECIAL EDUCATION CLASSROOM AIDE Not Available [facility] ([facility]) [address] [facility], [place], [address], 06/16/2025 08:09:31 06/15/20 25 06/15/2025 CBC WITH DIFFE RENTI AL/PL ATELE T hematology comments: SPECIAL EDUCATION CLASSROOM AIDE Not Available [facility] ([facility]) [address] [place], [address], 06/16/2025 08:09:31 06/15/20 25 06/16/2025 LIPID PANEL cholesterol, total 164 mg/dL 100-19 9 normal Not Available [facility] ([facility]) [address] [place], [address], 06/16/2025 08:09:32 06/15/20 25 06/16/2025 LIPID PANEL triglyceride s 79 mg/dL 0-149 normal Not Available [facility] ([facility]) [address] [place], [address], 06/16/2025 08:09:32 06/15/20 25 06/16/2025 LIPID PANEL HDL cholesterol 59 mg/dL >39 normal Not Available [facility] ([facility]) [address] [place], [address], 06/16/2025 08:09:32 06/15/20 25 06/16/2025 LIPID PANEL VLDL cholesterol errol 15 mg/dL 5-40 Not Available [facility] ([facility]) [address] [place], [address], 06/16/2025 08:09:32 06/15/20 25 06/16/2025 LIPID PANEL LDL chol calc ([facility]) 90 mg/dL 0-99 Not Available [facility] ([facility]) [address] [place], [address], 06/16/2025 08:09:32 06/15/20 25 06/16/2025 LIPID PANEL LDL calc comment: SPECIAL EDUCATION CLASSROOM AIDE Not Available [facility] ([facility]) [address] [place], [address], 06/16/2025 08:09:32 06/15/20 25 06/15/2025 PSA TOTAL (REFL EX TO FREE) reflex criteria Commen t The perce nt free PSA is perfo rmed on a refle x basis only when the total PSA is betwe en 4.0 and 10.0 ng/mL . Not Available [facility] ([facility]) [address] [place], [address], 06/16/2025 08:09:32 06/15/20 25 06/16/2025 PSA TOTAL (REFL EX TO FREE) prostate [...] t be inter prete d as absol [place] evide nce of the prese nce or absen ce of alison mercado se. Not Available [facility] ([facility]) [address] [facility], [place], [address], 06/16/2025 08:09:32 06/15/2006/16/2025 MAGNE SIUM magnesium 2.2 mg/dL 1.6-2. 3 normal Not Available [facility] ([facility]) [address] [place], [address], 06/16/2025 08:09:33 06/18/2006/17/2025 CT heart w/o dye mariza eval CT Heart W/O Dye Mariza Eval INDICA TION: Reason : E78.5 HYPERL IPIDEM IA UNSPEC ; Clinic al Questi on(s): Other: . Male of age 69 , race White COMPAR ADDY: None TECHNI QUE: Brooks ry artery Calciu m Scorin g. After a locali zing horn player image was obtain ed, an ECG-ga kerry [...] . No acute bony findin gs. IMPRES CLARKE: The Agatst on brooks ry calciu m [...] e and treate d diabet es: http:/ [email or web address]. [email or web address]-nh lbi.or g/Calc ium/in put.[email or web address] px WSN: [id number] Orderi Physic saeed: Gianni Pichardo Dictat ed By: Elaine Jacobson MD Dictbashir ed Date/T emmanuel: 5:54 pm Review ed By: Elaine Jacobson MD Signed By: Elaine Jacobson MD Signed Date/T emmanuel: 5:54 pm Transc ribed By: TREE Transc ribed Date/T emmanuel: 5:52 pm Patien t Class: Outpat ient [email or web address] [facility] (Outpt Imaging) [address] , [place], [address], 07/07/2025 13:34:11 Result Notes None recorded. 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 Had TURP in 2020. Gianni Aleman MD [address], [place], [address] , [facility] 3 08:15:51 Intermit tent dysphagi a 54097179 Active Not Available [facility] 1 13:54:53 General examinat ion of patient Completed 200803/02/2014 RECORDED 11/25/19 09 12:47PM BY GIANNI LOPEZ MD, ANNOTATI ON/CHRISTIANE DUM Gianni Aleman MD [address], [place], [address] , [facility] 6 12:49:44 General examinat ion of patient Completed 200803/22/2014 RECORDED 11/25/19 09 12:47PM BY GIANNI LOPEZ MD, ANNOTATI ON/ADDEN DUM Gianni Aleman MD [address], [place], [address] , [facility] 6 12:49:44 Screenin g for malignan t neoplasm of colon Completed 201003/02/2014 RECORDED 03/21/20 11 3:03PM BY LASHON LEI MD [address], [place], [address] , [facility] 6 12:49:44 Acute pharyngi tis 262631426 Completed 201203/02/2014 RECORDED 02/03/20 13 2:19PM BY MOSHE CHACKO ON/DANISHA Aleman MD [address], [place], [address] , [facility] 6 12:49:44 Dysphagi a [id number] Completed 201203/02/2014 RECORDED 02/03/20 13 2:19PM BY MOSHE HCACKO ON/DANISHA Aleman MD [address], [place], [address] , [facility] 6 12:49:44 Nocturia 061334278 Completed 201203/02/2014 RECORDED 02/03/20 13 2:19PM BY MOSHE CHACKO ON/DANISHA Aleman MD [address], [place], [address] , [facility] 6 12:49:44 Eruption 738453312 Completed 201203/02/2014 IMPRESSI ON: LESION AT LEFT UPPER ARM APPEARS TO BE A WART BUT HAS SOME ATYPICAL FEATURES ; RECORDED 02/03/20 13 2:19PM BY MOSHE CHACKO ON/DANISHA Aleman MD [address], [place], [address] , [facility] 6 12:49:44 Acute sinusiti s 96941632 Completed 201203/02/2014 IMPRESSI ON: WORSENIN G SINUS SXS, PND AND THROAT IRRIATIO N W/URI PAST TWO WEEKS. START ABX, NASAL CS SPRAY. ADVISED RE REST, FLUIDS, OTC ANALGESI C AND NASAL SALINE. TO CALL FOR WORSENIN G/PRN.; RECORDED 02/03/20 13 2:19PM BY MOSHE CHACKO ON/DANISHA Aleman MD [address] [address], [place], [address] , [facility] 6 12:49:44 Dermatop hytosis of the perianal area Completed 201203/02/2014 RECORDED 02/03/20 13 2:19PM BY MOSHE CHACKO/DANISHA Aleman MD [address] [address], [place], [address] , [facility] 6 12:49:44 Acute pharyngi tis 222581941 Completed 201203/22/2014 RECORDED 02/03/20 13 2:19PM BY MOSHE CHACKO/DANISHA Aleman MD [address] [address], [place], [address] , [facility] 6 12:49:44 Dysphagi a [id number] Completed 201203/22/2014 RECORDED 02/03/20 13 2:19PM BY MOSHE CHACKO ON/DANISHA Aleman MD [address] [address], [place], [address] , [facility] 6 12:49:44 Nocturia 834143390 Completed 201203/22/2014 RECORDED 02/03/20 13 2:19PM BY MOSHE CHACKO/DANISHA Aleman MD [facility] [address], [place], [address] , [facility] 6 12:49:44 Eruption 142070228 Completed 201203/22/2014 IMPRESSI ON: LESION AT LEFT UPPER ARM APPEARS TO BE A WART BUT HAS SOME ATYPICAL FEATURES ; RECORDED 02/03/20 13 2:19PM BY MOSHE CHACKO ON/DANISHA Aleman MD [address] [address], [place], [address] , [facility] 6 12:49:44 Acute sinusiti s 14387611 Completed 201203/22/2014 IMPRESSI ON: WORSENIN G SINUS SXS, PND AND THROAT IRRIATIO N W/URI PAST TWO WEEKS. START ABX, NASAL CS SPRAY. ADVISED RE REST, FLUIDS, OTC ANALGESI C AND NASAL SALINE. TO CALL FOR WORSENIN G/PRN.; RECORDED 02/03/20 13 2:19PM BY MOSHE CHACKO ON/DANISHA Aleman MD [address] [address], [place], [address] , [facility] 6 12:49:44 Dermatop hytosis of the perianal area Completed 201203/22/2014 RECORDED 02/03/20 13 2:19PM BY MOSHE CHACKO ON/DANISHA Aleman MD [address] [address], [place], [address] , [facility] 6 12:49:44 Screenin g for malignan t neoplasm of colon Completed 201308/13/2014 RECORDED 02/04/20 14 10:07AM BY GIANNI LOPEZ MD, OFFICE VISIT Gianni Aleman MD [address] [facility] [address], [place], [address] , [facility] 6 12:49:44 Conjunct ivitis 0723271 Completed 201307/06/2014 RECORDED 02/04/20 14 9:37AM BY JENNIFER FRIAS I, OFFICE VISIT Gianni Aleman MD [address] [address], [place], [address] , [facility] 6 12:49:44 Hyperlip idemia 49102010 Active 2013 RECORDED 02/04/20 14 9:50AM BY GIANNI LOPEZ MD, OFFICE VISIT Gianni Aleman MD [address] [address], [facility] [place], [address] , [facility] 2 09:17:43 Low back pain 894201839 Active 2013 RECORDED 02/04/20 14 9:37AM BY JENNIFER FRIAS I, OFFICE VISIT Not Available [facility] 13:54:53 Patient status finding [id number] Completed 201307/06/2014 RECORDED 02/04/20 14 9:38AM BY JENNIFER FRIAS I, OFFICE VISIT Gianni Aleman MD [address] [address], [facility] [place], [address] , [facility] 6 12:49:44 Adult health examinat ion Completed 201307/06/2014 RECORDED 02/04/20 14 9:38AM BY JENNIFER FRIAS I, OFFICE VISIT Gianni Aleman MD [address] [address], [facility] [place], [address] , [facility] 6 12:49:44 Cramp in limb 103797526 Active 2013 IMPRESSI ON: DISCUSSE D HYDRATIO N, STRETCHI NG, IRON AND ZINC. 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 Not Available [facility] 13:54:53 Erectile dysfunct ion 700850499 Active 2020 Using viagra Not Available [facility] 13:54:53 History of SARS-CoV -2 94704077565 3899358 Active 2021 Pascual Polo RN null, [facility] 2 15:50:03 Left sided abdomina l pain 208661670 Active 2022 Seen by GI; most likely related to constipa tion. Gianni Aleman MD [address] [facility] [address], [place], [address] , [facility] 3 16:25:53 Elevated blood-pr essure reading without diagnosi s of hyperten clarke 500920225 Active 2023 brooke gudino [facility] 4 13:14:09 Dizzines s 576037263 Active 2023 brooke gudino [facility] 4 13:29:13 Benign paroxysm al position al vertigo 922270195 Active 2023 brooke gudino [facility] 4 13:39:34 Fatigue 83367575 Active 2023 brooke gudino [facility] 4 14:09:30 Paroxysm al atrial fibrilla tion 839834418 Active 2023 Seen in [facility] Gianni Aleman MD [address] [facility] [address], [place], [address] , [facility] 4 12:12:26 COVID-19 735409200 Active 2023 Pascual Polo RN null, [facility] 4 16:10:32 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 Procedures Surgical History Date Name Laterality Status Provider Name and Address Organization Details Recorded Time 06/04/20 25 implantation of insertable loop recorder completed Veronique Araujo MA [facility] 06/08/2025 13:59:31 01/03/20 24 Echo transthoracic completed Katarina Anne [facility] 01/08/2024 09:16:57 06/18/20 22 Colonoscopy completed Jayshree Araiza [facility] 06/20/2022 13:25:16 11/23/19 21 cystoscopy completed Laly Cabral [facility] 11/24/2020 10:52:37 11/23/19 21 Prostate Surgery completed Rebecca Shea MA [facility] 05/03/2021 14:05:21 02/11/20 18 Egd diagnostic brush wash completed Lelia Ho [facility] 02/13/2018 15:11:28 Thyroid Surgery completed Rebecca renteria MA [facility] 05/03/2021 14:05:21 Imaging Results None recorded. Procedure Notes None recorded. Medical Equipment None Reported. Allergies Allergen ID Allergen Name Allergen Category Reaction Reaction Severity Criticality Documentation Date Start Date Code Code System Note Provider Name and Address Organization Details Recorded Time 2187 Product containin g penicilli n (product) medicatio n Not available Not available Not available 02/23/20142013 27999 6565 SNOMED COMME NT: RECOR DED 02/03 9:37 AM BY JENNIFER GREENBERG, OFFIC E VISIT ; Not Available [facility] 4 09:47:58 Medications Name Sig Start Date [...] RECORDED 08/28/19 12 8:10PM BY ADDY LANZA, PA-C, MEDICATI ON AUTO-DORIS CTIVATIO N; Not [...] 02/14 completed RECORDED 02/15/20 11 5:01PM BY GIANNI LOPEZ MD, ANNOTATI ON/ADDEN DUM; Not Available [...] 02/19 completed RECORDED 02/20/20 07 5:37PM BY GIANNI LOPEZ MD, MEDICATI ON AUTO-DORIS CTIVATIO N; [...] Updated DateTime 5 173.99 cm 30.4 kg/m2 03549.2 5 g 54 /min 98 % 98.2 [degF] 148/75 mm[Hg] 120/80 mm[Hg] Veronique Araujo MA [facility] 5 14:03:34 Social History Question Answer Notes LastModified by Organizat ion Details LastModified Time Tobacco Smoking Status Never Smoker Not Available [facility] 06/14/2020 03:36:38 Do You Have An Advance Directive? Yes Information not available 05/08/2022 Is Blood Transfusion Acceptable In An Emergency? Yes [id number] Information not available 06/14/2020 What Is Your Level Of Caffeine Consumption? Moderate 2 Coffee Daily Information not available 05/08/2022 How Much Tobacco Do You Chew? None [id number] Information not available 06/14/2020 What Type Of Diet Are You Following? REGULAR [id number] Information not available 06/14/2020 Which Illicit Or Recreational Drugs Have You Used? None [id number] Information not available 06/14/2020 Live Alone Or With Others? With Others , Steffanie And 1 Oseas moon Information not available 05/14/2023 Do You Take Precautions To Prevent Distracted Driving? Yes Information not available 02/07/2016 How Often Do You Need To Have Someone Help You When You Read Instructions, Pamphlets, Or Other Written Material From Your Doctor Or Pharmacy? Never Information not available 02/07/2016 Have You Served In The ? No Information not available 02/07/2017 Have You Or Anyone In Your Household Had Any Of The Following Symptoms In The Last 14 Days: Sore Throat, Cough, Chills, Body Aches For Unknown Reasons, Shortness Of Breath For Unknown Reasons, Loss Of Smell, Loss Of Taste, Fever At Or Greater Than 100 Degrees Fahrenheit? No Information not available 05/03/2021 Are You Or Anyone In Your Household A Health Care Provider Or Emergency Responder? No [email or web address] Information not available 05/03/2021 To The Best Of Your Knowledge Have You Been In Close Proximity To Any Individual Who Tested Positive For COVID-19? No [email or web address] Information not available 05/03/2021 Have You Recently Traveled To A COVID-19 High Risk Area Or Gathering In The Last 10 Days? No [email or web address] Information not available 05/03/2021 What Was The Date Of Your Most Recent Tobacco Screening? 06/08/2025 Information not available 06/08/2025 How Many Children Do You Have? 3 Sons; 1 GS Information not available 06/09/2024 Do You Use Protection During Sex? No [id number] Information not available 06/14/2020 Do You Use Your Seat Belt Or Car Seat Routinely? Yes [email or web address] Information not available 05/03/2021 Seat Belts Used Routinely Yes Information not available 05/08/2022 Are You Sexually Active? Yes [id number] Information not available 06/14/2020 Smoke Alarm In Home Yes Information not available 05/08/2022 Do You Have Smoke And Carbon Monoxide Detectors In Your Home? Yes [email or web address] Information not available 05/03/2021 Are You Passively Exposed To Smoke? No Information not available 02/07/2016 How Much Tobacco Do You Smoke? No [email or web address] Information not available 05/03/2021 General Stress Level Medium Information not available 05/08/2022 Do You Use Sunscreen Routinely? Yes [id number] Information not available 06/14/2020 How Many Years [...] used smokeless tobacco? Never used smokeless tobacco [id number] Information not available 06/14/2020 Are you currently employed? No retired November 2023 Information not available 06/09/2024 Are you able to walk independently without assistance or assistive devices? [email or web address] Information not available 05/08/2022 Are you able to care for yourself independently? 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 Information not available 06/08/2025 Do you or have you ever used e-cigarettes or vape? Never used electronic cigarettes Information not available 05/08/2022 What is your exercise level? Moderate Stationary bike Information not available 06/09/2024 Mental Status None recorded. Family History Relationship Description Onset Age of this Age Resolved Age Notes LastModified by Organization Details LastModified Time Mother Carcinoma in situ of breast 85 Not available 2024 13:50:13 Mother Hypertensive disorder 85 [email or web address] Not available 04/13 14:31:25 Mother Congestive heart failure 85 [email or web address] Not available 2024 13:50:13 Mother Arthritis 85 [email or web address] Not avail able 05/03/2021 14:31:31 Father Malignant neoplasm of lung 59 [email or web address] Not available 04/13 14:31:08 Maternal Uncle Malignant neoplasm of urinary bladder [email or web address] Not available 2024 13:50:13 Brother Congestive heart failure 78 [email or web address] Not available 05/13 14:15:53 Sister Anomaly of chromosome pair 21 55 [email or web address] Not available 05/13 14:15:12 Notes:No FH of colon cancer; 2 brothers and 3 sisters ( 1 brother and 1 sister heart disease) Medical History Condition Response Other N Gout N Kidney Stones N Blood Diseases N Hyperthyroidism N Breast Cancer N Lung Disease N Hypothyroidism N Depression N COPD N Defects or Inherited Disease N Anesthesia [...] Eczema Y Diverticulitis N Abuse/Domestic Violence N Asthma N Allergies N Reflux/GERD N Hepatitis N Pulmonary Embolism N Hypertension N Osteoporosis N Chicken Pox N Autism Spectrum Disorder (ASD) N Immunizations Vaccine Type Date Status Note Provider Nam e and Address Organization Details Recorded Time Influenza, high-dose, trivalent, PF 5 completed Gianni Aleman MD [address] [address], [place], [address], [facility] 06/08/2025 14:27:07 Influenza, split virus, trivalent, preservative 7 completed Laly gudino, [facility] 05/09/2021 10:29:50 COVID-19, mRNA, LNP-S, PF, 30 mcg/0.3 mL dose 1 completed LOLY Mccauley, [facility] 05/08/2022 13:28:17 COVID-19, mRNA, LNP-S, PF, 30 mcg/0.3 mL dose 1 completed LOLY Mccauley, [facility] 05/08/2022 13:28:17 Influenza, split virus, trivalent, preservative 1 completed LOLY Mccauley, [facility] 05/08/2022 13:28:18 Influenza, MDCK, quadrivalent, PF 0 completed LOLY Mccauley, [facility] 05/08/2022 13:28:17 zoster recombinant 1 completed LOLY Mccauley, [facility] 05/08/2022 13:28:18 zoster recombinant 2 completed LOLY Mccauley, [facility] 05/08/2022 13:28:18 COVID-19, mRNA, LNP-S, PF, 100 mcg/0.5mL dose or 50 mcg/0.25mL dose 1 completed LOLY Mccauley, [facility] 05/08/2022 13:28:18 COVID-19, mRNA, LNP-S, bivalent, PF, 50 mcg/0.5 mL or 25mcg/0.25 mL dose 2 completed LOLY Cuellar, [facility] 05/14/2023 13:41:57 Influenza, split virus, trivalent, preservative 4 completed LOLY Cuellar [facility] 05/14/2023 13:41:57 COVID-19, mRNA, LNP-S, PF, 50 mcg/0.5 mL 3 completed Not Available [facility] 06/08/2025 13:51:07 COVID-19, mRNA, LNP-S, PF, brian-sucrose, 30 mcg/0.3 mL 4 completed Not Available [facility] 06/08/2025 13:51:07 Pneumococcal conjugate PCV20, polysaccharide [id number] conjugate, adjuvant, PF 3 completed Not Available [facility] 06/08/2025 13:51:07 COVID-19, mRNA, LNP-S, PF, brian-sucrose, 30 mcg/0.3 mL 5 completed Not Available [facility] 06/08/2025 13:51:07 Tdap 7 completed Not Available [facility] 08/29/2019 02:21:46 Influenza, split virus, quadrivalent, PF 2 completed LOLY Mccauley, [facility] 05/08/2022 13:27:59 Influenza, high-dose, quadrivalent, PF 3 completed Gianni Aleman MD [address], [address], [facility] 05/14/2023 17:57:38 Tdap 7 completed Laly gudino, [facility] 05/09/2021 10:29:50 Influenza, high-dose, trivalent, PF 4 completed Gianni Aleman MD [address], [address], [facility] 06/09/2024 17:11:37 Past Encounters Encounter ID Performer Location Encounter Start Date Encounter Closed Date Diagnosis/Indication Diagnosis SNOMED-CT Code Diagnosis ICD10 Code Diagnosis IMO Codes Diagnosis Note [id number] Gianni Aleman MD Main Office [address] [phone] 06/08/2025 13:48:39 06/08/2025 14:36:48 Adult health examination 153333967 Z00.00 He is UTD with COVID vaccines and his last booster was December 2024.UTD with tetanus and shingles vaccines.Ruth quezada will get a flu vaccine today.Advi sed him to get a pneumonia vaccine at his pharmacy.Ruth quezada had a colonoscop y in 2021 and is due again in 2028.We reviewed cardiac and stroke risk factors. Influenza vaccine needed [id number] 106 Z23 67 YEARS AND OLDER Paroxysmal atrial fibrillation 829033464 I48.0 Asymptomat ic and followed by cardiology . Hyperlipidemia 89525717 E78.5 On meds; check fasting lipid level. He would like to stop his cholestero l med but has agreed to a calcium score before doing so. Benign pro static hyperplasia without outflow obstruction [id number] N40.0 On meds and followed by urology. PSA is normal. Health Concerns Section Related Observation LastModified by Organization Detai ls LastModified Time None Recorded Concern Status LastModified by Organization Details LastModified Time None Recorded Payers Encounter Date Sequence Insurance Name Policy Number Policy Nance Covered Member ID Nance Member ID Guarantor Name 06/08/2025 1 [facility] (MEDICARE REPLACEMENT/ ADVANTAGE - PPO) [id number] 2 Checo Reed [id number] Checo Reed Notes Date Note Type Note Provider Name and Address Organization Details Recorded Time 06/08/2025 text/html Medicare Annual Wellness VisitReported by [...] vaccine today.ROS as noted in the HPI Gianni Aleman MD [address] [address], [place], [address], [facility] 06/08/2025 18:05:49
[2025-07-29 02:28] LABS: Troponin-I High Sensitivity 25.2 ng/L (<3.5-35.0)
[2025-07-29 02:31] LABS: Alanine Aminotransferase 38 U/L (0-40); Albumin Level 4.6 g/dL (3.5-5.0); Alkaline Phosphatase 61 U/L (39-117); Anion Gap 14 (12-20); Aspartate Amino Transferase 38 U/L (5-37); Blood Urea Nitrogen 12 mg/dL (9-16); Calcium 9.3 mg/dL (8.4-10.2); Carbon Dioxide 25 mmol/L (22-29); Chloride 109 mmol/L (96-108); Creatinine Clr Calc Pharmacy 75.1; Estimated Glomerular Filt Rate > 60; Potassium 3.7 mmol/L (3.3-5.1); Sodium 144 mmol/L (135-145); Total Protein 7.0 g/dL (6.5-8.0)
[2025-07-29 02:56] VITALS: PULSE 61
[2025-07-29 02:59] VITALS: BP 131/78; PULSE 55; RESP 16; TEMP 36.4; O2SAT 96
[2025-07-29 03:01] VITALS: BP 131/78; PULSE 55; RESP 16; TEMP 36.4; O2SAT 96
== END 2025-07-29 03:01 | disposition home or self-care (01) ==
PROVIDERS: Emergency Provider Emergency Medicine; PCP Internal Medicine
DX: I48.0 Paroxysmal atrial fibrillation (principal); Z79.82 Long term (current) use of aspirin; Z79.02 Long term (current) use of antithrombotics/antiplatelets
CPT/HCPCS: 36415; 71046; 80053; 84443; 84484; 85025; 93005; 99283; 99285

== ENCOUNTER → 2025-07-29 00:47 | Outpatient (BNV) | payer MEDICARE, SELFPAY | PROVIDERS: Emergency Provider Emergency Medicine; PCP Internal Medicine; Visit Provider Internal Medicine Cardiovascular Disease | DX: I48.91 Unspecified atrial fibrillation (principal); I49.9 Cardiac arrhythmia, unspecified | CPT/HCPCS: 93010 ==

== ENCOUNTER → 2025-07-29 01:15 | Outpatient (BNV) | payer MEDICARE, SELFPAY | PROVIDERS: PCP Internal Medicine; Visit Provider Radiology Neuroradiology | DX: I48.91 Unspecified atrial fibrillation (principal) | CPT/HCPCS: 71046 ==